=== PATIENT | male | born 1990 | race Two or more races ===

== ENCOUNTER 2017-02-21 11:33 | Inpatient (IN) | payer OTHER ==
[~2017-02-21] VITALS: Ht 177.8 cm; Wt 88.5 kg
--- NOTE | 2017-02-21 12:31 | Emergency Room Report ---
History of Present Illness General Chief Complaint: General Complaint Source: Patient Present Illness HPI Patient is a complains of redness and swelling in the left axilla Denies any fevers However he has some mild chills There was increased discomfort yesterday he feels that that has improved mildly Denies any discharge Denies any chest or shortness of breath Patient had similar pathology in the right axilla which at that time require surgery Presents for further evaluation Allergies: Coded Allergies: No Known Allergies (Unverified , 02/21/17) Patient History Past Medical History: see triage record Pertinent Family History: none Reviewed Nursing Documentation: PMH: Agreed, PSxH: Agreed Nursing Documentation-PMH Past Medical History: No History, Except For Review of Systems All Other Systems: negative except mentioned in HPI Physical Exam Vital Signs Date Time Temp Pulse Resp B/P (MAP) Pulse Ox O2 Delivery O2 Flow Rate FiO2 02/21/17 11:43 98.1 93 18 134/86 96 Room Air Sp02 EP Interpretation: reviewed, normal General Appearance: well appearing, no apparent distress Head: normocephalic, atraumatic Eyes: bilateral eye PERRL, bilateral eye EOMI ENT: hearing grossly normal, normal pharynx, TMs + canals normal, uvula midline Neck: full range of motion, supple, no meningismus, no bony tend Respiratory: lungs clear, normal breath sounds, no rhonchi, no respiratory distress, no retraction, no accessory muscle use Cardiovascular #1: normal peripheral pulses, regular rate, rhythm, no edema, no gallop, no JVD, no murmur Gastrointestinal: normal bowel sounds, non tender, soft, no mass, no organomegaly, non-distended, no guarding, no hernia, no pulsatile mass, no rebound Genitourinary: no CVA tenderness Musculoskeletal: normal inspection Neurologic: oriented x3, responsive, basketball commentator III-XII nml as tested, motor strength/ tone normal, sensory intact Psychiatric: mood/affect normal Skin: other - Erythema and fluctuance in the left axilla, there appears to be several sinus areas that appear to be fluctuant, no obvious lymph node pathology Lymphatic: normal inspection, no adenopathy Medical Decision Making Diagnostic Impression: Primary Impression: Axillary abscess Additional Impression: Cellulitis ER Course Given the patient's presentation history and findings as concern for cellulitis/ abscess formation Has several areas of what appear to be tracking sinus regions raising concern for a deeper abscess Patient has baseline blood work initiated Outpatient antibiotics provided At this time will require further inpatient intervention Labs Test 02/21/17 12:59 02/21/17 13:31 White Blood Count 11.2 K/UL (4.8-10.8) Red Blood Count 5.03 M/UL (4.70-6.10) Hemoglobin 15.4 G/DL (14.2-18.0) Hematocrit 46.6 % (42.0-52.0) Mean Corpuscular Volume 93 FL (80-99) Mean Corpuscular Hemoglobin 30.7 PG (27.0-31.0) Mean Corpuscular Hemoglobin Concent 33.1 G/DL (32.0-36.0) Red Cell Distribution Width 10.9 % (11.6-14.8) Platelet Count 317 K/UL (150-450) Mean Platelet Volume 6.0 FL (6.5-10.1) Neutrophils (%) (Auto) 66.7 % (45.0-75.0) Lymphocytes (%) (Auto) 25.6 % (20.0-45.0) Monocytes (%) (Auto) 5.6 % (1.0-10.0) Eosinophils (%) (Auto) 1.2 % (0.0-3.0) Basophils (%) (Auto) 0.9 % (0.0-2.0) Prothrombin Time 10.7 SEC (9.30-11.50) Prothromb Time International Ratio 1.0 (0.9-1.1) Activated Partial Thromboplast Time 30 SEC (23-33) Troponin I < 0.30 ng/mL (<=0.30) Rhythm Strip Diag. Results EP Interpretation: yes Rate: 88 Rhythm: NSR, no PVC's, no ectopy Chest X-Ray Diagnostic Results Chest X-Ray Diagnostic Results : Chest X-Ray Ordered: Yes # of Views/Limited/Complete: 1 View Indication: Chest Pain EP Interpretation: Yes Interpretation: no consolidation, no effusion, no pneumothorax Impression: No acute disease Electronically Signed by: Negrito German DO Last Vital Signs Date Time Temp Pulse Resp B/P (MAP) Pulse Ox O2 Delivery O2 Flow Rate FiO2 02/21/17 11:43 98.1 93 18 134/86 96 Room Air Status: improved Disposition: ADMITTED INPATIENT Condition: Serious NEGRITO GERMAN D.O. Feb 21, 2017 12:31
[2017-02-21] MEDS ORDERED: NKM (12:41)
[2017-02-21 13:01] VITALS: BP 123/76
[2017-02-21 13:19] LABS: BASOPHILS % (AUTO) 0.9 % (0.0-2.0); EOSINOPHILS % (AUTO) 1.2 % (0.0-3.0); LYMPHOCYTES % (AUTO) 25.6 % (20.0-45.0); MEAN CORPUSCULAR HEMOGLOBIN 30.7 PG (27.0-31.0); MEAN CORPUSCULAR HGB CONC 33.1 G/DL (32.0-36.0); MEAN CORPUSCULAR VOLUME 93 FL (80-99); MONOCYTES % (AUTO) 5.6 % (1.0-10.0); NEUTROPHILS % (AUTO) 66.7 % (45.0-75.0); PLATELET COUNT 317 K/UL (150-450); RED BLOOD COUNT 5.03 M/UL (4.70-6.10); RED CELL DISTRIBUTION WIDTH 10.9 % (11.6-14.8); WHITE BLOOD COUNT 11.2 K/UL (4.8-10.8)
[2017-02-21 13:21] LABS: PROTHROMBIN TIME 10.7 SEC (9.30-11.50)
--- NOTE | 2017-02-21 13:31 | Diagnostic Imaging Report ---
Indication: Chest pain Technique: One view of the chest Comparison: none Findings: Lungs and pleural spaces are clear. Heart size is normal Impression: No acute process
[2017-02-21 13:55] LABS: TROPONIN I < 0.30 ng/mL (<=0.30)
[2017-02-21 14:00] LABS: ALANINE AMINOTRANSFERASE 18 U/L (3-41); ALBUMIN/GLOBULIN RATIO 1.6 (1.0-2.7); ANION GAP 14 (5-15); ASPARTATE AMINO TRANSFERASE 13 U/L (5-40); CALCIUM 8.9 mg/dL (8.6-10.2); CARBON DIOXIDE 24 mEQ/L (20-30); CHLORIDE 104 mEQ/L (98-107); CREATININE 0.8 mg/dL (0.7-1.2); GLOMERULAR FILTRATION RATE > 60 mL/min (>60); HEMOLYSIS 1; SODIUM 142 mEQ/L (135-145); TOTAL PROTEIN 6.9 g/dL (6.6-8.7)
[2017-02-21 14:10] LABS: CKMB 1.5 ng/mL (< 6.7)
[2017-02-21 14:20] VITALS: BP 123/76
[2017-02-21] MEDS ORDERED: Morphine Sulfate 4mg/ml Inj IVP PRN (14:30)
[2017-02-21] MEDS ORDERED: Morphine Sulfate 2mg/ml Inj IVP PRN (14:30)
[2017-02-21] MEDS ORDERED: Mylanta II UD 30ml ORAL PRN (14:30)
[2017-02-21 15:54] VITALS: BP 120/86
[2017-02-21] MEDS: D5 1/2NS 1,000 ML IV SCH (16:41)
[2017-02-21 20:00] VITALS: BP 134/87
--- NOTE | 2017-02-21 20:56 | History and Physical ---
History of Present Illness General Date patient seen: Feb 21, 2017 Time patient seen: 14:00 Reason for Hospitalization: L axilla lesion Present Illness HPI 26yo male with pmh of hiradenitis suppurative who presents with L axilla lesion. Pt noted lesions started abt 1 week ago described as raised lesions with swelling/redness/drainage. Lesions are worsening. He had similar lesions on R axilla abt 1 year ago and underwent surgery w/ good response. Denies f/c, n /v, d/c, chest pain, SOB. Pt smokes abt 1ppd every 2-2.5 days. He is active and denies chest pain and SOB while active. Allergies: Coded Allergies: No Known Allergies (Unverified , 02/21/17) Medication History Scheduled No Known Medications* (NKM - No Known Medications*), 0 ., (Reported) Patient History History Provided By: Patient, Medical Record, PMD Healthcare decision maker Resuscitation status Full Code Advanced Directive on File Past Medical/Surgical History Past Medical/Surgical History: (1) Hidradenitis suppurativa Family History Family History: Cardiac disorder in grandfather FH: HTN (hypertension) Social History Social History: (1) Tobacco abuse Review of Systems ROS Narrative CONSTITUTIONAL: No weight loss, fever, chills, weakness or fatigue. HEENT: Eyes: No visual loss, blurred vision, double vision or yellow sclerae. Ears, Nose, Throat: No hearing loss, sneezing, congestion, runny nose or sore throat. SKIN: +L axillay lesion CARDIOVASCULAR: No chest pain, chest pressure or chest discomfort. No palpitations or edema. RESPIRATORY: No shortness of breath, cough or sputum. GASTROINTESTINAL: No anorexia, nausea, vomiting or diarrhea. No abdominal pain or blood. NEUROLOGICAL: No headache, dizziness, syncope, paralysis, ataxia, numbness or tingling in the extremities. No change in bowel or bladder control. MUSCULOSKELETAL: No muscle, back pain, joint pain or stiffness. HEMATOLOGIC: No anemia, bleeding or bruising. LYMPHATICS: No enlarged nodes. No history of splenectomy. PSYCHIATRIC: No history of depression or anxiety. ENDOCRINOLOGIC: No reports of sweating, cold or heat intolerance. No polyuria or polydipsia. ALLERGIES: No history of asthma, hives, eczema or rhinitis. Physical Exam Physical Exam Narrative General: alert, cooperative, no distress, appears stated age Head: normocephalic, without obvious abnormality, atraumatic Eyes: conjunctivae/corneas clear. PERRL, EOM's intact Throat: lips, mucosa, and tongue normal. MMM Neck: supple, symmetrical, trachea midline, and no JVD Lungs: clear to auscultation bilaterally Heart: regular rate and rhythm, S1, S2 normal, no murmur, click, rub or gallop Abdomen: soft, non-tender, non-distended, bowel sounds normal; no masses or organomegaly Extremities: extremities normal, atraumatic, no cyanosis or edema Pulses: 2+ and symmetric Skin: Erythema and fluctuance in the left axilla, there appears to be several sinus areas that appear to be fluctuant Neurologic: grossly normal, no focal deficits Last 24 Hour Vital Signs Date Time Temp Pulse Resp B/P (MAP) Pulse Ox O2 Delivery O2 Flow Rate FiO2 02/21/17 15:54 97.9 79 20 120/86 96 Room Air 02/21/17 14:20 97.7 70 12 123/76 98 Room Air 02/21/17 14:20 70 12 123/76 98 Room Air 02/21/17 13:01 97.7 75 15 123/76 99 Room Air 02/21/17 11:43 98.1 93 18 134/86 96 Room Air Intake and Output 02/21/17 02/22/17 19:00 07:00 Intake Total 150 ml 340 ml Balance 150 ml 340 ml Intake Oral 340 ml IV Total 150 ml # Voids 1 2 # Bowel Movements 1 Laboratory Tests Test 02/21/17 12:59 02/21/17 13:31 White Blood Count 11.2 K/UL (4.8-10.8) H Red Blood Count 5.03 M/UL (4.70-6.10) Hemoglobin 15.4 G/DL (14.2-18.0) Hematocrit 46.6 % (42.0-52.0) Mean Corpuscular Volume 93 FL (80-99) Mean Corpuscular Hemoglobin 30.7 PG (27.0-31.0) Mean Corpuscular Hemoglobin Concent 33.1 G/DL (32.0-36.0) Red Cell Distribution Width 10.9 % (11.6-14.8) L Platelet Count 317 K/UL (150-450) Mean Platelet Volume 6.0 FL (6.5-10.1) L Neutrophils (%) (Auto) 66.7 % (45.0-75.0) Lymphocytes (%) (Auto) 25.6 % (20.0-45.0) Monocytes (%) (Auto) 5.6 % (1.0-10.0) Eosinophils (%) (Auto) 1.2 % (0.0-3.0) Basophils (%) (Auto) 0.9 % (0.0-2.0) Prothrombin Time 10.7 SEC (9.30-11.50) Prothromb Time International Ratio 1.0 (0.9-1.1) Activated Partial Thromboplast Time 30 SEC (23-33) Sodium Level 142 mEQ/L (135-145) Potassium Level 4.0 mEQ/L (3.4-4.9) Chloride Level 104 mEQ/L (98-107) Carbon Dioxide Level 24 mEQ/L (20-30) Anion Gap 14 (5-15) Blood Urea Nitrogen 10 mg/dL (7-23) Creatinine 0.8 mg/dL (0.7-1.2) Estimat Glomerular Filtration Rate > 60 mL/min (>60) Glucose Level 83 mg/dL (74-106) Calcium Level 8.9 mg/dL (8.6-10.2) Total Bilirubin 0.3 mg/dL (0.0-1.2) Aspartate Amino Transf (AST/SGOT) 13 U/L (5-40) Alanine Aminotransferase (ALT/SGPT) 18 U/L (3-41) Alkaline Phosphatase 65 U/L (40-129) Total Creatine Kinase 76 U/L (38-174) Creatine Kinase MB 1.5 ng/mL (< 6.7) Creatine Kinase MB Relative Index 1.9 Troponin I < 0.30 ng/mL (<=0.30) Total Protein 6.9 g/dL (6.6-8.7) Albumin 4.3 g/dL (3.5-5.2) Globulin 2.6 g/dL Albumin/Globulin Ratio 1.6 (1.0-2.7) Height (Feet): 5 Height (Inches): 10.00 Weight (Pounds): 195 Medications Current Medications Medications (Trade) Dose Ordered Sig/Rosangela Route PRN Reason Start Time Stop Time Status Last Admin Dose Admin Acetaminophen (Tylenol) 650 mg Q4H PRN ORAL Mild Pain (Pain Scale 1-3) 02/21/17 14:30 03/23/17 14:29 Al Hydroxide/Mg Hydroxide (Mylanta II) 30 ml Q6H PRN ORAL dyspepsia 02/21/17 14:30 03/23/17 14:29 Bisacodyl (Dulcolax) 10 mg HSPRN PRN RECTAL Constipation 02/21/17 21:00 03/23/17 20:59 Dextrose (Dextrose 50%) STAT PRN IV Hypoglycemia 02/21/17 14:30 03/23/17 14:29 Dextrose/Sodium Chloride 1,000 ml @ 75 mls/hr [id number] IV 02/21/17 14:30 03/23/17 14:29 02/21/17 16:41 Diphenhydramine HCl (Benadryl) 25 mg Q6H PRN ORAL Itching/Pruritis 02/21/17 14:30 03/23/17 14:29 Docusate Sodium (Colace) 100 mg EVERY 12 HOURS ORAL 02/21/17 21:00 03/23/17 20:59 Magnesium Hydroxide (Mom) 30 ml HSPRN PRN ORAL Constipation 02/21/17 21:00 03/23/17 20:59 Morphine Sulfate (Morphine Sulfate) 2 mg Q3H PRN IVP Moderate Pain (Pain Scale 4-6) 02/21/17 14:30 02/28/17 14:29 Morphine Sulfate (Morphine Sulfate) 4 mg Q3H PRN IVP Severe Pain (Pain Scale 7-10) 02/21/17 14:30 02/28/17 14:29 Ondansetron HCl (Zofran) 4 mg Q6H PRN IVP Nausea & Vomiting 02/21/17 14:30 03/23/17 14:29 Polyethylene Glycol (Miralax) 17 gm HSPRN PRN ORAL Constipation 02/21/17 21:00 03/23/17 20:59 Zolpidem Tartrate (Ambien) 5 mg HSPRN PRN ORAL Insomnia 02/21/17 21:00 02/28/17 20:59 Assessment/Plan Problem List: (1) Axillary abscess ICD Codes: L02.419 - Cutaneous abscess of limb, unspecified SNOMED: 84397883 (2) Cellulitis ICD Codes: L03.90 - Cellulitis, unspecified SNOMED: 713329127 (3) Hidradenitis suppurativa ICD Codes: L73.2 - Hidradenitis suppurativa SNOMED: 50589212 (4) Tobacco abuse ICD Codes: Z72.0 - Tobacco use SNOMED: 82440265, [id number] Status: stable Assessment/Plan Admit in Plastic surgery consulted Check blood culture x 2 Empiric ancef Pain control, supportive care, bowel regimen If patient is required to have surgery, based on the patient's medical history, and other available ancillary data, the patient is a LOW risk for an INTERMEDIATE risk procedure. Per the most recent ACC/AHA guidelines, the patient does not need any further cardiopulmonary testing prior to the procedure and there do not appear to be any clear medical contraindications to proceeding with the proposed procedure. Discussed with patient/family, RN, surgery regarding mgmt and dispo Sharon Lenz M.D. Feb 21, 2017 20:56
[2017-02-21] MEDS ORDERED: Miralax 17gm pkt ORAL PRN (21:00)
[2017-02-21] MEDS ORDERED: Zolpidem 5mg tab ORAL PRN (21:00)
[2017-02-21] MEDS ORDERED: Milk of Magnesia 30ml Ud ORAL PRN (21:00)
[2017-02-21] MEDS: Docusate 100mg cap ORAL SCH (21:13)
[2017-02-22] VITALS (16 sets, daily range): BP systolic 101–128; BP diastolic 40–72
[2017-02-22] MEDS: D5 1/2NS 1,000 ML IV SCH ×2 (03:50→17:39)
[2017-02-22] MEDS ORDERED: Lidocaine 1% 10mg/ml/Epi 0.005mg/ml 30ml vial INJ ONE (07:16)
[2017-02-22] MEDS ORDERED: Surgicel 4in x 8in TOPIC ONE (07:16)
[2017-02-22] MEDS ORDERED: Bacitracin 50000 Units Vial ONE (07:17)
[2017-02-22] MEDS ORDERED: NeoSporin Gu Irrig 1ml Amp IRRIG ONE (07:17)
[2017-02-22] MEDS ORDERED: Propofol 200mg/20ml IV ONE ×2 (07:58→08:45)
--- NOTE | 2017-02-22 08:20 | Pre-Procedure Note/Attestation ---
Pre-Procedure Note/Attestation Complete Prior to Procedure Planned Procedure: left Procedure Narrative: Left axillary debridement and flap elevation and possible wound vac placement Attestation I attest that I discussed the nature of the procedure; its benefits; risks and complications; and alternatives (and the risks and benefits of such alternatives ), prior to the procedure, with the patient (or the patient's legal cash posting representative). I attest that, if there was a reasonable possibility of needing a blood transfusion, the patient (or the patient's legal cash posting representative) was given the [facility] standardized written summary, pursuant to the Juan Francisco Lipscomb Blood Safety Act ([place] Health and Safety Code # 1645, as amended). I attest that I re-evaluated the patient just prior to the surgery and that there has been no change in the patient's H&P, except as documented below: JAYLEEN CHEATHAM Feb 22, 2017 08:20
[2017-02-22] MEDS ORDERED: Rate Change PCA 1 Each MISC PRN (08:30)
[2017-02-22] MEDS ORDERED: Glycopyrrolate 0.2mg/ml 1ml Vial ONE (08:45)
[2017-02-22] MEDS ORDERED: Ketorolac 30mg Inj ONE (08:45)
[2017-02-22] MEDS ORDERED: Midazolam 2mg/2ml Inj ONE (08:45)
[2017-02-22] MEDS ORDERED: fentaNYL 100 mcg/2 mL IV ONE (08:45)
[2017-02-22] MEDS ORDERED: Sterile Water Irrig 1000ml IRRIG ONE (08:45)
[2017-02-22] MEDS ORDERED: LR 1000ml ONE (08:45)
[2017-02-22] MEDS ORDERED: Succinylcholine 20mg/ml 10ml vial ONE (08:45)
[2017-02-22] MEDS ORDERED: Zemuron 50mg/5ml Inj IV ONE (08:45)
[2017-02-22] MEDS ORDERED: Neostigmine 1mg/ml 10ml Inj ONE (08:45)
[2017-02-22] MEDS ORDERED: NS Irrig 1000ml ONE (08:45)
[2017-02-22] MEDS: Docusate 100mg cap ORAL SCH ×2 (09:00→21:08)
[2017-02-22] MEDS: ceFAZolin sod 1 GM in D5W 55 ML IVP SCH ×3 (09:00→21:08)
[2017-02-22] MEDS ORDERED: LR 1000ml 1,000 ML IVLG SCH (09:34)
--- NOTE | 2017-02-22 09:34 | Anethesia Preoperative Eval ---
Anesthesia Pre-op PMH/ROS General Date of Evaluation: Feb 22, 2017 Time of Evaluation: 08:40 Anesthesiologist: Cyn ASA Score: ASA 2 Mallampati Score Class I : Soft palate, uvula, fauces, pillars visible Class II: Soft palate, uvula, fauces visible Class III: Soft palate, base of uvula visible Class IV: Only hard plate visible Mallampati Classification: Class II Surgeon: Deon Diagnosis: L axillary hydradenitis Surgical Procedure: xcision of L axillary HS Anesthesia History: none Social History: current smoker Family History: no anesthesia problems Allergies: Coded Allergies: No Known Allergies (Unverified , 02/21/17) Medications: see eMAR Past Medical History Cardiovascular: Denies: HTN, CAD, OR, valve dz, arrhythmia, other Pulmonary: Denies: asthma, COPD, WILFRID, other Gastrointestinal/Genitourinary: Reports: GERD - mild, Denies: CRI, ESRD, other Neurologic/Psychiatric: Denies: dementia, CVA, depression/anxiety, TIA, other Endocrine: Denies: DM, hypothyroidism, steroids, other HEENT: Denies: cataract (L), cataract (R), glaucoma, ANGOON (L), ANGOON (R), other Hematology/Immune: Denies: anemia, DVT, bleeding disorder, other Musculoskeletal/Integumentary: Reports: other - recurrent HS, Denies: OA, RA, DJD, DDD, edema PMH Narrative: as above PSxH Narrative: Surgical treatment of HS Anesthesia Pre-op Phys. Exam Physician Exam Last Vital Signs Date Time Temp Pulse Resp B/P (MAP) Pulse Ox O2 Delivery O2 Flow Rate FiO2 02/22/17 08:00 98.2 73 19 126/64 99 Room Air Constitutional: NAD Neurologic: CN 2-12 intact Cardiovascular: RRR, no M/R/G Respiratory: CTA Gastrointestinal: S/NT/ND Airway Exam Mallampati Score: Class II MO: full Neck: flexible ROM: full Teeth: intact Dentures: no upper, no lower Anesthesia Pre-op A/P Labs Hematology Test 02/21/17 12:59 White Blood Count 11.2 K/UL (4.8-10.8) H Red Blood Count 5.03 M/UL (4.70-6.10) Hemoglobin 15.4 G/DL (14.2-18.0) Hematocrit 46.6 % (42.0-52.0) Mean Corpuscular Volume 93 FL (80-99) Mean Corpuscular Hemoglobin 30.7 PG (27.0-31.0) Mean Corpuscular Hemoglobin Concent 33.1 G/DL (32.0-36.0) Red Cell Distribution Width 10.9 % (11.6-14.8) L Platelet Count 317 K/UL (150-450) Mean Platelet Volume 6.0 FL (6.5-10.1) L Neutrophils (%) (Auto) 66.7 % (45.0-75.0) Lymphocytes (%) (Auto) 25.6 % (20.0-45.0) Monocytes (%) (Auto) 5.6 % (1.0-10.0) Eosinophils (%) (Auto) 1.2 % (0.0-3.0) Basophils (%) (Auto) 0.9 % (0.0-2.0) Coagulation Test 02/21/17 12:59 Prothrombin Time 10.7 SEC (9.30-11.50) Prothromb Time International Ratio 1.0 (0.9-1.1) Activated Partial Thromboplast Time 30 SEC (23-33) Chemistry Test 02/21/17 13:31 Sodium Level 142 mEQ/L (135-145) Potassium Level 4.0 mEQ/L (3.4-4.9) Chloride Level 104 mEQ/L (98-107) Carbon Dioxide Level 24 mEQ/L (20-30) Anion Gap 14 (5-15) Blood Urea Nitrogen 10 mg/dL (7-23) Creatinine 0.8 mg/dL (0.7-1.2) Estimat Glomerular Filtration Rate > 60 mL/min (>60) Glucose Level 83 mg/dL (74-106) Calcium Level 8.9 mg/dL (8.6-10.2) Total Bilirubin 0.3 mg/dL (0.0-1.2) Aspartate Amino Transf (AST/SGOT) 13 U/L (5-40) Alanine Aminotransferase (ALT/SGPT) 18 U/L (3-41) Alkaline Phosphatase 65 U/L (40-129) Total Creatine Kinase 76 U/L (38-174) Creatine Kinase MB 1.5 ng/mL (< 6.7) Creatine Kinase MB Relative Index 1.9 Troponin I < 0.30 ng/mL (<=0.30) Total Protein 6.9 g/dL (6.6-8.7) Albumin 4.3 g/dL (3.5-5.2) Globulin 2.6 g/dL Albumin/Globulin Ratio 1.6 (1.0-2.7) Risk Assessment & Plan Assessment: ASA 2 Plan: GA with ETT Status Change Before Surgery: No Pre-Antibiotics Drug: Ancef 2 gr. Given Within 1 Hr of Incision: Yes Time Given: 09:02 ANEL BENNETT M.D. Feb 22, 2017 09:34
--- NOTE | 2017-02-22 09:41 | Operative Note - PDOC ---
Operative Note Operative Note Pre-op Diagnosis: Left axillary infection Procedure: Radical excision of left axillary tissue with flap elevation Surgeon: Deon Automatic Winder Operator: Mandy Anesthesia: general Specimen: yes Complications: none Estimated Blood Loss: minimal Drains: wound vac Implant(s) used?: No JAYLEEN CHEATHAM Feb 22, 2017 09:41
[2017-02-22] MEDS ORDERED: Meperidine 25mg/0.5ml Inj (FOR RIGORS ONLY) IV PRN (09:45)
[2017-02-22] MEDS ORDERED: DiphenhydrAMINE 50mg/ml Inj IVP PRN (09:45)
[2017-02-22] MEDS ORDERED: Hydromorphone 0.5mg/0.5ml inj IVP PRN (09:45)
[2017-02-22] MEDS ORDERED: Ketorolac 30mg Inj IV PRN (09:45)
[2017-02-22] MEDS ORDERED: Metoclopramide 10mg/2ml Inj IVP PRN (09:45)
[2017-02-22] MEDS ORDERED: Midazolam 2mg/2ml Inj IVP PRN (09:45)
[2017-02-22] MEDS ORDERED: PCA HYDROmorphone 1mg/ml 30 ML IV PRN (10:00)
[2017-02-22] MEDS ORDERED: Zolpidem 5mg tab ORAL PRN (10:00)
--- NOTE | 2017-02-22 10:09 | Immediate Post-Op Evaluation ---
Immediate Post-Op Evalulation Immediate Post-Op Evalulation Procedure: Excision of L axillary HS Date of Evaluation: Feb 22, 2017 Time of Evaluation: 10:08 IV Fluids: 800 Blood Products: none Estimated Blood Loss: <50 Urinary Output: none Blood Pressure Systolic: 128 Blood Pressure Diastolic: 56 Pulse Rate: 98 Respiratory Rate: 22 O2 Sat by Pulse Oximetry: 98 Temperature (Fahrenheit): 97.6 Pain Score (1-10): 2 Nausea: No Vomiting: No Complications none Patient Status: awake, patent, extubated, none Hydration Status: adequate ANEL BENNETT M.D. Feb 22, 2017 10:09
[2017-02-22] MEDS: PCA HYDROmorphone 1mg/ml 30 ML IV PRN (11:09)
[2017-02-22] MEDS ORDERED: PCA Education Pamphlet MISC ONE (12:00)
--- NOTE | 2017-02-22 15:15 | General Progress Note ---
Assessment/Plan Problem List: (1) Axillary abscess ICD Codes: L02.419 - Cutaneous abscess of limb, unspecified SNOMED: 00746415 (2) Cellulitis ICD Codes: L03.90 - Cellulitis, unspecified SNOMED: 716760168 (3) Hidradenitis suppurativa ICD Codes: L73.2 - Hidradenitis suppurativa SNOMED: 69969341 (4) Tobacco abuse ICD Codes: Z72.0 - Tobacco use SNOMED: 98295941, 734006874 Status: stable Assessment/Plan Appreciate surgery rec's s/p radical excision of left axillary tissue with flap elevation on 02/22/17 Empiric IV ancef F/u cultures Encourage mobilization/ambulation Encourage incentive spirometry to optimize pulmonary hygiene DVT/GI prophylaxis as appropriate Pain control, supportive care, bowel regimen Counseled on tobacco cessation FULL CODE A total of 32min of extra time was spent in addition to normal encounter time for care/coordination and counseling. D/w pt, RN, surgery regarding mgmt and dispo. D/w Dr. Chavarria re postop rec's Subjective Date patient seen: Feb 22, 2017 Time patient seen: 15:15 ROS Limited/Unobtainable: No Constitutional: Reports: no symptoms HEENT: Reports: no symptoms Cardiovascular: Reports: no symptoms Respiratory: Reports: no symptoms Gastrointestinal/Abdominal: Reports: no symptoms Genitourinary: Reports: no symptoms Neurologic/Psychiatric: Reports: no symptoms Endocrine: Reports: no symptoms Hematologic/Lymphatic: Reports: no symptoms Allergies: Coded Allergies: No Known Allergies (Unverified , 02/21/17) All Systems: reviewed and negative except above Subjective No acute o/n events s/p radical excision of left axillary tissue with flap elevation today Pt doing well. Pain controlled. Denies f/c, n/v, d/c, chest pain, SOB Objective Last 24 Hour Vital Signs Date Time Temp Pulse Resp B/P (MAP) Pulse Ox O2 Delivery O2 Flow Rate FiO2 02/22/17 12:47 18 02/22/17 12:39 97.6 54 18 111/49 99 Nasal Cannula 02/22/17 12:17 17 02/22/17 12:08 96.9 51 18 102/40 97 Nasal Cannula 02/22/17 12:02 18 02/22/17 11:49 96.8 54 18 101/40 98 Nasal Cannula 02/22/17 11:47 17 02/22/17 11:41 97.0 02/22/17 11:30 13 02/22/17 11:15 97.2 56 17 122/57 100 Room Air 3.0 02/22/17 11:15 15 02/22/17 11:09 14 02/22/17 11:00 53 15 128/60 100 Room Air 3.0 02/22/17 10:45 58 14 119/70 100 Simple Mask 6.0 02/22/17 10:30 69 13 127/70 100 Simple Mask 6.0 02/22/17 10:15 82 14 127/70 100 Simple Mask 6.0 02/22/17 10:09 98 22 98 02/22/17 10:05 79 15 117/64 100 Simple Mask 6.0 02/22/17 10:00 97 16 115/63 100 Simple Mask 6.0 02/22/17 09:54 97.4 108 14 123/47 97 Simple Mask 6.0 02/22/17 08:00 98.2 73 19 126/64 99 Room Air 02/22/17 04:00 98.0 72 18 122/64 98 Room Air 02/22/17 00:00 97.5 79 18 120/66 98 Room Air 02/21/17 20:00 98.4 82 18 134/87 97 Room Air 02/21/17 15:54 97.9 79 20 120/86 96 Room Air Intake and Output 02/22/17 02/23/17 19:00 07:00 Intake Total 1150 ml Output Total 50 ml Balance 1100 ml IV Total 1150 ml Output Estimated Blood Loss 50 ml # Bowel Movements 1 Height (Feet): 5 Height (Inches): 10.00 Weight (Pounds): 195 Objective General: alert, cooperative, no distress, appears stated age Head: normocephalic, without obvious abnormality, atraumatic Eyes: conjunctivae/corneas clear. PERRL, EOM's intact Throat: lips, mucosa, and tongue normal. MMM Neck: supple, symmetrical, trachea midline, and no JVD Lungs: clear to auscultation bilaterally Heart: regular rate and rhythm, S1, S2 normal, no murmur, click, rub or gallop Abdomen: soft, non-tender, non-distended, bowel sounds normal; no masses or organomegaly Extremities: extremities normal, atraumatic, no cyanosis or edema Pulses: 2+ and symmetric Skin: skin color, texture, turgor normal; no rashes or lesions Dressing c/d/i Neurologic: grossly normal, no focal deficits Sharon Lenz M.D. Feb 22, 2017 15:15
[2017-02-22] MEDS ORDERED: D5 1/2NS 1000ml IV ONE (16:06)
[2017-02-22] MEDS: PCA shift volume MISC SCH (19:00)
[2017-02-22] MEDS: Heparin 5000 units/ml inj SUBQ SCH (21:00)
--- NOTE | 2017-02-22 22:15 | Consultation ---
DATE OF CONSULTATION: 02/22/2017 History Of Present Illness: This is a 26-year-old [place] male admitted through the emergency room for pain and infection in his left axilla. He presented with significant induration and tenderness in the area and was admitted by the medical team and was started on IV antibiotics. PAST MEDICAL HISTORY: Significant for hidradenitis. Past Surgical History: Significant for right axillary reconstruction with skin grafting. MEDICATIONS: None. ALLERGIES: None. PHYSICAL EXAMINATION: GENERAL: The patient is alert and oriented x3. HEART: Regular rate and rhythm. ABDOMEN: Soft, nontender, and nondistended. Extremities: Examination of the extremities and the trunk reveals an area of induration and infected tissue under the left axilla. LABORATORY DATA: White blood cell count is elevated at 11.2. Assessment And Plan: This is a 26-year-old male with infected left axillary tissue secondary to hidradenitis suppurativa. He will require a staged treatment of radical excision of the area with flap elevation followed by staged closure with flap advancement and closure of the wound. He understands this plan and agrees to proceed. Angelo Chavarria M.D. DR: MAGALI JOB#: [id number] CC:
--- NOTE | 2017-02-22 22:15 | Operative Note - Dictated ---
DATE OF OPERATION: 02/22/2017 NOTE: INCOMPLETE DICTATION SURGEON: Angelo Chavarria M.D. PREOPERATIVE DIAGNOSIS: Infected left axillary tissue. POSTOPERATIVE DIAGNOSIS: Infected left axillary tissue. PROCEDURES: Radical excision of Angelo Chavarria M.D. DR: LEATHA JOB#: [id number] CC:
[2017-02-23] VITALS: BP 115/70
--- NOTE | 2017-02-23 02:15 | Operative Note - Dictated ---
DATE OF OPERATION: 02/22/2017 PREOPERATIVE DIAGNOSIS: Infected left axillary tissue. POSTOPERATIVE DIAGNOSIS: Infected left axillary tissue. PROCEDURES: 1. Radical excision of left axillary tissue. 2. Elevation of the thoracodorsal artery flap for staged closure of left axillary wound. 3. Elevation of anterior lateral chest wall flap for staged closure of left axillary wound. SURGEON: Angelo Chavarria M.D. FURNACE REPAIRER: Juancarlos Galvan M.D. ANESTHESIA: General. COMPLICATIONS: None. DRAINS: Included a wound VAC. DISPOSITION: Stable to the recovery room. Indications For Surgery: This is a 26-year-old male, admitted with elevated white count and infection and drainage in the left axilla. He was noted to have evidence of an infected mass there secondary to hidradenitis. I felt that he was an appropriate candidate for staged treatment with a radical excision and reconstruction. He understood the risks and benefits of surgery and agreed to proceed. Details Of The Operation: The patient was brought to the operating room and laid in the supine position on the operating room table. His left axilla and chest were prepped and draped in a sterile and usual fashion. A marking pen was used to delineate the extent of the infection on the axilla and this measured approximately 3 x 8 cm. A #10 blade was used to make the incision to radically excise the specimen and followed with electrocautery all the way down to the level of the axillary fascia. The specimen was freed from the axillary fascia and completely excised from the wound bed. Following the radical excision, the wound was measured once again and a corresponding thoracodorsal artery flap was designed along the lateral chest wall and once this was done, a #10 blade was then used to make the skin incision all the way down to the level of the latissimus muscle and the flap was fully mobilized with a pedicle flap based off of perforators of the thoracodorsal artery. Once this was done, we also noted that we needed to advance an additional flap to allow for complete closure of the wound, as such an anterior lateral chest wall flap based off of perforators of the intercostal arteries was elevated just above the latissimus as well as pectoralis muscle fascia. The flap was fully mobilized with the combination of these two flaps. When we tentatively closed the wound, we noted that there was a tension-free closure with the flaps being inset. However, given the amount of infection present, we felt that it was not appropriate to perform definitive closure and flap inset at this time. As such, the wound was copiously irrigated with pulse lavage. The thoracodorsal artery flap was then placed back in situ in port lions position following hemostasis and the wound that remained in the axilla was covered with a wound VAC, sponge, and the plan will be to bring the patient back in 72 hours for removal of the wound VAC with flap advancement and definitive closure of the wounds. The patient tolerated the procedure well. There were no complications. Angelo Chavarria M.D. DR: MAGALI JOB#: [id number] CC:
[2017-02-23 04:00] VITALS: BP 122/62
[2017-02-23] MEDS: D5 1/2NS 1,000 ML IV SCH ×2 (06:24→20:54)
[2017-02-23] MEDS: ceFAZolin sod 1 GM in D5W 55 ML IVP SCH ×3 (06:24→21:13)
[2017-02-23] MEDS: PCA shift volume MISC SCH ×2 (07:26→19:19)
[2017-02-23 08:00] VITALS: BP 117/69
--- NOTE | 2017-02-23 09:03 | General Progress Note ---
Progress Note Progress Note Pt seen and examined. POD# 1 and doing well. Wound vac fxing fine. Pain well controlled. To OR on Saturday for definitive wound closure. JALYEEN Fink MD Feb 23, 2017 09:03
[2017-02-23] MEDS: Docusate 100mg cap ORAL SCH ×2 (09:17→20:54)
[2017-02-23] MEDS: Heparin 5000 units/ml inj SUBQ SCH ×2 (09:19→21:02)
--- NOTE | 2017-02-23 10:55 | 48 Hour Post Anesthesia Eval ---
Post Anesthesia Evaluation Procedure: Excision of L axillary HS Date of Evaluation: Feb 23, 2017 Time of Evaluation: 10:54 Blood Pressure Systolic: 117 0: 54 Pulse Rate: 74 Respiratory Rate: 14 O2 Sat by Pulse Oximetry: 100 Airway: patent Nausea: No Vomiting: No Hydration Status: adequate Mental Status/LOC: patient returned to baseline Follow-up Care/Observations: per surgery Post-Anesthesia Complications: none Follow-up care needed: N/A MARY MOLINA CRNA Feb 23, 2017 10:55
[2017-02-23] MEDS: PCA HYDROmorphone 1mg/ml 30 ML IV PRN (11:13)
[2017-02-23 12:00] VITALS: BP 126/70
--- NOTE | 2017-02-23 15:33 | General Progress Note ---
Assessment/Plan Problem List: (1) Axillary abscess ICD Codes: L02.419 - Cutaneous abscess of limb, unspecified SNOMED: 17076456 (2) Cellulitis ICD Codes: L03.90 - Cellulitis, unspecified SNOMED: 523419943 (3) Hidradenitis suppurativa ICD Codes: L73.2 - Hidradenitis suppurativa SNOMED: 88713774 (4) Tobacco abuse ICD Codes: Z72.0 - Tobacco use SNOMED: 84795919, [id number] Status: stable Assessment/Plan Appreciate surgery rec's s/p radical excision of left axillary tissue with flap elevation on 02/22/17 Plan for OR on Sat for closure Empiric IV ancef F/u cultures Encourage mobilization/ambulation Encourage incentive spirometry to optimize pulmonary hygiene DVT/GI prophylaxis as appropriate Pain control, supportive care, bowel regimen Counseled on tobacco cessation FULL CODE A total of 31min of extra time was spent in addition to normal encounter time for care/coordination and counseling. D/w pt, RN, surgery regarding mgmt and dispo. D/w Dr. Chavarria re postop rec's Subjective Date patient seen: Feb 23, 2017 Time patient seen: 15:33 ROS Limited/Unobtainable: No Constitutional: Reports: no symptoms HEENT: Reports: no symptoms Cardiovascular: Reports: no symptoms Respiratory: Reports: no symptoms Gastrointestinal/Abdominal: Reports: no symptoms Genitourinary: Reports: no symptoms Neurologic/Psychiatric: Reports: no symptoms Endocrine: Reports: no symptoms Hematologic/Lymphatic: Reports: no symptoms Allergies: Coded Allergies: No Known Allergies (Unverified , 02/21/17) All Systems: reviewed and negative except above Subjective No acute o/n events s/p radical excision of left axillary tissue with flap elevation POD#1 Pt doing well. Pain controlled. Denies f/c, n/v, d/c, chest pain, SOB Objective Last 24 Hour Vital Signs Date Time Temp Pulse Resp B/P (MAP) Pulse Ox O2 Delivery O2 Flow Rate FiO2 02/23/17 12:00 19 02/23/17 12:00 98.3 72 19 126/70 100 Room Air 02/23/17 10:55 74 14 100 02/23/17 08:00 20 02/23/17 08:00 98.4 74 20 117/69 99 Room Air 02/23/17 04:00 97.8 61 18 122/62 97 Room Air 02/23/17 04:00 18 02/23/17 00:00 98.1 59 18 115/70 97 Room Air 02/23/17 00:00 18 02/22/17 20:00 97.9 62 19 127/72 98 Room Air 02/22/17 17:17 18 02/22/17 16:00 19 02/22/17 16:00 97.8 59 18 126/69 100 Nasal Cannula Intake and Output 02/23/17 02/24/17 19:00 07:00 Intake Total 600 ml Balance 600 ml IV Total 600 ml Height (Feet): 5 Height (Inches): 10.00 Weight (Pounds): 195 Objective General: alert, cooperative, no distress, appears stated age Head: normocephalic, without obvious abnormality, atraumatic Eyes: conjunctivae/corneas clear. PERRL, EOM's intact Throat: lips, mucosa, and tongue normal. MMM Neck: supple, symmetrical, trachea midline, and no JVD Lungs: clear to auscultation bilaterally Heart: regular rate and rhythm, S1, S2 normal, no murmur, click, rub or gallop Abdomen: soft, non-tender, non-distended, bowel sounds normal; no masses or organomegaly Extremities: extremities normal, atraumatic, no cyanosis or edema Pulses: 2+ and symmetric Skin: skin color, texture, turgor normal; no rashes or lesions Dressing c/d/i Neurologic: grossly normal, no focal deficits Sharon Lenz M.D. Feb 23, 2017 15:33
[2017-02-23 16:00] VITALS: BP 129/83
[2017-02-23 20:00] VITALS: BP 131/78
[2017-02-24] VITALS: BP 120/60
[2017-02-24 04:00] VITALS: BP 121/65
[2017-02-24] MEDS: ceFAZolin sod 1 GM in D5W 55 ML IVP SCH ×3 (05:09→21:52)
[2017-02-24] MEDS: PCA shift volume MISC SCH ×2 (07:00→19:25)
[2017-02-24 08:00] VITALS: BP 111/61
[2017-02-24] MEDS: Docusate 100mg cap ORAL SCH ×2 (08:47→21:52)
[2017-02-24] MEDS: Heparin 5000 units/ml inj SUBQ SCH ×2 (08:50→21:53)
[2017-02-24] MEDS: D5 1/2NS 1,000 ML IV SCH ×2 (10:33→22:38)
[2017-02-24] MEDS ORDERED: Morphine Sulfate 4mg/ml Inj IVP PRN (11:05)
[2017-02-24] MEDS ORDERED: Morphine Sulfate 2mg/ml Inj IVP PRN (11:05)
[2017-02-24] MEDS ORDERED: PCA HYDROmorphone 1mg/ml 30 ML IV PRN (11:15)
[2017-02-24] MEDS ORDERED: Rate Change PCA 1 Each MISC PRN (11:15)
[2017-02-24 12:34] VITALS: BP 121/76
[2017-02-24 16:22] VITALS: BP 120/71
--- NOTE | 2017-02-24 19:10 | General Progress Note ---
Assessment/Plan Problem List: (1) Tobacco abuse ICD Codes: Z72.0 - Tobacco use SNOMED: 39860664, 685659465 (2) Hidradenitis suppurativa ICD Codes: L73.2 - Hidradenitis suppurativa SNOMED: 93033154 (3) Axillary abscess ICD Codes: L02.419 - Cutaneous abscess of limb, unspecified SNOMED: 12444296 (4) Cellulitis ICD Codes: L03.90 - Cellulitis, unspecified SNOMED: 976704835 Status: doing well Assessment/Plan Appreciate surgery rec's s/p radical excision of left axillary tissue with flap elevation on 02/22/17 Plan for OR on Sat for closure Empiric IV ancef F/u cultures Encourage mobilization/ambulation Encourage incentive spirometry to optimize pulmonary hygiene DVT/GI prophylaxis as appropriate Pain control, supportive care, bowel regimen Counseled on tobacco cessation FULL CODE Subjective Date patient seen: Feb 24, 2017 Allergies: Coded Allergies: No Known Allergies (Unverified , 02/21/17) Subjective Doing well AF, HDS pain well controlled. denies f/c, n/v, sob, cp Objective Last 24 Hour Vital Signs Date Time Temp Pulse Resp B/P (MAP) Pulse Ox O2 Delivery O2 Flow Rate FiO2 02/24/17 16:22 97.8 65 20 120/71 99 Room Air 02/24/17 16:00 18 02/24/17 12:34 98.0 64 18 121/76 98 Room Air 02/24/17 12:00 18 02/24/17 08:00 97.8 68 18 111/61 98 Room Air 02/24/17 08:00 18 02/24/17 04:00 97.7 60 19 121/65 97 Room Air 02/24/17 04:00 19 02/24/17 00:00 97.8 62 18 120/60 98 Room Air 02/24/17 00:00 18 02/23/17 20:00 98.4 66 18 131/78 98 Room Air 02/23/17 20:00 18 Intake and Output 02/24/17 02/25/17 19:00 07:00 Intake Total 1185 ml Output Total 500 ml Balance 685 ml Intake Oral 360 ml IV Total 825 ml Output Urine Total 500 ml Drainage Total 0 ml Height (Feet): 5 Height (Inches): 10.00 Weight (Pounds): 195 General Appearance: no apparent distress EENT: PERRL/EOMI Neck: non-tender Cardiovascular: normal peripheral pulses, normal rate, regular rhythm Respiratory/Chest: other - with left axillary wound vac Abdomen: normal bowel sounds, non tender, soft Extremities: normal range of motion Neurologic: pipeline welder II-XII grossly normal, no motor/sensory deficits Noris Nolan N.P. Feb 24, 2017 19:10
--- NOTE | 2017-02-24 19:39 | Cardiology Report ---
APPROVED REPORT EKG Measurement Heart [id number] Normal sinus rhythm with sinus arrhythmia Normal ECG
[2017-02-24 20:00] VITALS: BP 133/65
[2017-02-25] VITALS (19 sets, daily range): BP systolic 102–148; BP diastolic 56–82
[2017-02-25] MEDS: ceFAZolin sod 1 GM in D5W 55 ML IVP SCH ×3 (05:27→20:52)
[2017-02-25] MEDS: PCA shift volume MISC SCH ×2 (07:00→19:00)
[2017-02-25] MEDS: Heparin 5000 units/ml inj SUBQ SCH ×2 (09:00→20:52)
[2017-02-25] MEDS: Docusate 100mg cap ORAL SCH ×2 (09:00→17:48)
--- NOTE | 2017-02-25 09:34 | Pre-Procedure Note/Attestation ---
Pre-Procedure Note/Attestation Complete Prior to Procedure Planned Procedure: left Procedure Narrative: Flap closure of left axillary wound Indications for Procedure Pre-Operative Diagnosis: Left axillary open wound Attestation I attest that I discussed the nature of the procedure; its benefits; risks and complications; and alternatives (and the risks and benefits of such alternatives ), prior to the procedure, with the patient (or the patient's legal help desk representative). I attest that, if there was a reasonable possibility of needing a blood transfusion, the patient (or the patient's legal help desk representative) was given the [facility] standardized written summary, pursuant to the [place] Blood Safety Act ([place] Health and Safety Code # 1645, as amended). I attest that I re-evaluated the patient just prior to the surgery and that there has been no change in the patient's H&P, except as documented below: JAYLEEN CHEATHAM Feb 25, 2017 09:34
[2017-02-25] MEDS ORDERED: DiphenhydrAMINE 50mg/ml Inj IVP PRN ×2 (09:45→11:15)
[2017-02-25] MEDS ORDERED: Rate Change PCA 1 Each MISC PRN (09:45)
[2017-02-25] MEDS ORDERED: Zolpidem 5mg tab ORAL PRN (09:45)
[2017-02-25] MEDS ORDERED: PCA HYDROmorphone 1mg/ml 30 ML IV PRN (09:45)
[2017-02-25] MEDS ORDERED: PCA Education Pamphlet MISC ONE (09:45)
[2017-02-25] MEDS ORDERED: Sterile Water Irrig 1000ml IRRIG ONE (10:00)
[2017-02-25] MEDS ORDERED: Zemuron 50mg/5ml Inj IV ONE (10:00)
[2017-02-25] MEDS ORDERED: Ketorolac 30mg Inj ONE (10:00)
[2017-02-25] MEDS ORDERED: NS Irrig 1000ml ONE (10:00)
[2017-02-25] MEDS ORDERED: Neostigmine 1mg/ml 10ml Inj ONE (10:00)
[2017-02-25] MEDS ORDERED: Succinylcholine 20mg/ml 10ml vial ONE (10:00)
[2017-02-25] MEDS ORDERED: Propofol 200mg/20ml IV ONE (10:00)
[2017-02-25] MEDS ORDERED: fentaNYL 100 mcg/2 mL IV ONE (10:00)
[2017-02-25] MEDS ORDERED: Sodium Chloride 10ml vial INJ ONE (10:00)
[2017-02-25] MEDS ORDERED: Morphine Sulfate 10mg/ml Inj ONE (10:00)
[2017-02-25] MEDS ORDERED: Midazolam 2mg/2ml Inj ONE (10:00)
[2017-02-25] MEDS ORDERED: Glycopyrrolate 0.2mg/ml 1ml Vial ONE (10:00)
[2017-02-25] MEDS ORDERED: LR 1000ml ONE (10:00)
[2017-02-25] MEDS ORDERED: Surgicel 4in x 8in TOPIC ONE (10:09)
[2017-02-25] MEDS ORDERED: NeoSporin Gu Irrig 1ml Amp IRRIG ONE (10:09)
[2017-02-25] MEDS ORDERED: Bacitracin 50000 Units Vial ONE (10:09)
[2017-02-25] MEDS ORDERED: Lidocaine 1% 10mg/ml/Epi 0.005mg/ml 30ml vial INJ ONE (10:09)
[2017-02-25] MEDS ORDERED: LR 1000ml 1,000 ML IVLG SCH (11:11)
--- NOTE | 2017-02-25 11:11 | Anethesia Preoperative Eval ---
Anesthesia Pre-op PMH/ROS General Date of Evaluation: Feb 25, 2017 Time of Evaluation: 10:05 Anesthesiologist: Cyn ASA Score: ASA 2 Mallampati Score Class I : Soft palate, uvula, fauces, pillars visible Class II: Soft palate, uvula, fauces visible Class III: Soft palate, base of uvula visible Class IV: Only hard plate visible Mallampati Classification: Class II Surgeon: Deon Diagnosis: Recurrent HS Surgical Procedure: Revision and closure of L axillary wound Anesthesia History: none Family History: no anesthesia problems Allergies: Coded Allergies: No Known Allergies (Unverified , 02/21/17) Medications: see eMAR Past Medical History Cardiovascular: Denies: HTN, CAD, PA, valve dz, arrhythmia, other Pulmonary: Denies: asthma, COPD, [place], other Gastrointestinal/Genitourinary: Reports: GERD - mild, Denies: CRI, ESRD, other Neurologic/Psychiatric: Denies: dementia, CVA, depression/anxiety, TIA, other Endocrine: Denies: DM, hypothyroidism, steroids, other HEENT: Denies: cataract (L), cataract (R), glaucoma, [place] (L), [place] (R), other Hematology/Immune: Denies: anemia, DVT, bleeding disorder, other Musculoskeletal/Integumentary: Reports: other - recurrent HS, Denies: OA, RA, DJD, DDD, edema PMH Narrative: as above PSxH Narrative: See H&P Anesthesia Pre-op Phys. Exam Physician Exam Last Vital Signs Date Time Temp Pulse Resp B/P (MAP) Pulse Ox O2 Delivery O2 Flow Rate FiO2 02/25/17 08:00 98.4 68 17 113/63 98 Room Air 02/22/17 11:15 3.0 Constitutional: NAD Neurologic: CN 2-12 intact Cardiovascular: RRR, no M/R/G Respiratory: CTA Gastrointestinal: S/NT/ND Airway Exam Mallampati Score: Class II MO: full Neck: flexible ROM: full Teeth: intact Dentures: no upper, no lower Anesthesia Pre-op A/P Labs see Chart Risk Assessment & Plan Assessment: ASA 2 Plan: GA with ETT Status Change Before Surgery: No Pre-Antibiotics Drug: Ancef 1gr. Given Within 1 Hr of Incision: Yes Time Given: 10:38 ANEL BENNETT M.D. Feb 25, 2017 11:11
[2017-02-25] MEDS ORDERED: Ketorolac 30mg Inj IV PRN (11:15)
[2017-02-25] MEDS ORDERED: Meperidine 25mg/0.5ml Inj (FOR RIGORS ONLY) IV PRN (11:15)
[2017-02-25] MEDS ORDERED: Hydromorphone 0.5mg/0.5ml inj IVP PRN (11:15)
[2017-02-25] MEDS ORDERED: Midazolam 2mg/2ml Inj IVP PRN (11:15)
[2017-02-25] MEDS ORDERED: Metoclopramide 10mg/2ml Inj IVP PRN (11:15)
--- NOTE | 2017-02-25 11:38 | Operative Note - PDOC ---
Operative Note Operative Note Pre-op Diagnosis: Left axillary open wound Procedure: Left axillary wound closure Surgeon: Deon Design Maker: Mandy Anesthesia: general Specimen: yes Complications: none Estimated Blood Loss: minimal Drains: LELO Implant(s) used?: No JAYLEEN CHEATHAM Feb 25, 2017 11:38
[2017-02-25] MEDS ORDERED: Bacitracin Oint 15gm Tube TOPIC ONE (11:42)
[2017-02-25] MEDS: D5 1/2NS 1,000 ML IV SCH (11:50)
[2017-02-25] MEDS ORDERED: Neosporin Oint Ud Pkt TOPIC ONE (11:57)
--- NOTE | 2017-02-25 12:08 | Immediate Post-Op Evaluation ---
Immediate Post-Op Evalulation Immediate Post-Op Evalulation Procedure: Revision and closure of L axillary wound Date of Evaluation: Feb 25, 2017 Time of Evaluation: 12:07 IV Fluids: 1000 Blood Products: none Estimated Blood Loss: min Urinary Output: none Blood Pressure Systolic: 135 Blood Pressure Diastolic: 63 Pulse Rate: 86 Respiratory Rate: 22 O2 Sat by Pulse Oximetry: 99 Temperature (Fahrenheit): 97.6 Pain Score (1-10): 2 Nausea: No Vomiting: No Complications none Patient Status: awake, extubated, none Hydration Status: adequate ANEL BENNETT M.D. Feb 25, 2017 12:08
--- NOTE | 2017-02-25 16:25 | General Progress Note ---
Assessment/Plan Problem List: (1) Axillary abscess ICD Codes: L02.419 - Cutaneous abscess of limb, unspecified SNOMED: 54978635 (2) Cellulitis ICD Codes: L03.90 - Cellulitis, unspecified SNOMED: 034792267 (3) Hidradenitis suppurativa ICD Codes: L73.2 - Hidradenitis suppurativa SNOMED: 98729103 (4) Tobacco abuse ICD Codes: Z72.0 - Tobacco use SNOMED: 55122839, 292009770 Status: stable Assessment/Plan Appreciate surgery rec's s/p radical excision of left axillary tissue with flap elevation on 02/22/17 s/p left axillary wound closure on 02/25/17 Empiric IV ancef F/u cultures Encourage mobilization/ambulation Encourage incentive spirometry to optimize pulmonary hygiene DVT/GI prophylaxis as appropriate Pain control, supportive care, bowel regimen Counseled on tobacco cessation FULL CODE A total of 32min of extra time was spent in addition to normal encounter time for care/coordination and counseling. D/w pt, RN, surgery regarding mgmt and dispo. D/w Dr. Chavarria re postop rec's Subjective Date patient seen: Feb 25, 2017 Time patient seen: 16:23 ROS Limited/Unobtainable: No Constitutional: Reports: no symptoms HEENT: Reports: no symptoms Cardiovascular: Reports: no symptoms Respiratory: Reports: no symptoms Gastrointestinal/Abdominal: Reports: no symptoms Genitourinary: Reports: no symptoms Neurologic/Psychiatric: Reports: no symptoms Endocrine: Reports: no symptoms Hematologic/Lymphatic: Reports: no symptoms Allergies: Coded Allergies: No Known Allergies (Unverified , 02/21/17) All Systems: reviewed and negative except above Subjective No acute o/n events s/p left axillary wound closure today Pt doing well. Pain controlled. Denies f/c, n/v, d/c, chest pain, SOB Objective Last 24 Hour Vital Signs Date Time Temp Pulse Resp B/P (MAP) Pulse Ox O2 Delivery O2 Flow Rate FiO2 02/25/17 13:57 98.5 02/25/17 13:55 19 02/25/17 13:52 96.2 56 16 138/63 99 Nasal Cannula 3.0 02/25/17 13:40 20 02/25/17 13:35 98.5 61 19 124/67 100 Nasal Cannula 2.0 02/25/17 13:27 22 02/25/17 13:20 54 19 119/60 100 Nasal Cannula 2.0 02/25/17 13:05 54 12 124/63 100 Nasal Cannula 2.0 02/25/17 12:50 55 14 122/61 100 Nasal Cannula 2.0 02/25/17 12:45 56 14 124/59 100 Nasal Cannula 3.0 02/25/17 12:40 54 14 126/59 100 Nasal Cannula 3.0 02/25/17 12:35 58 15 126/60 100 Nasal Cannula 3.0 02/25/17 12:30 57 14 136/56 100 Nasal Cannula 3.0 02/25/17 12:25 59 15 133/60 100 Nasal Cannula 3.0 02/25/17 12:20 58 15 133/60 100 Nasal Cannula 3.0 02/25/17 12:10 76 15 148/75 100 Simple Mask 6.0 02/25/17 12:08 76 15 132/76 100 Simple Mask 6.0 02/25/17 12:08 86 22 99 02/25/17 12:03 93 23 135/63 100 Simple Mask 6.0 02/25/17 11:58 98.1 77 18 132/59 100 Simple Mask 6.0 02/25/17 08:00 98.4 68 17 113/63 98 Room Air 02/25/17 08:00 17 02/25/17 04:00 97.7 63 18 107/60 98 Room Air 02/25/17 04:00 17 02/25/17 00:00 16 02/24/17 20:00 98.1 75 18 133/65 95 Room Air 02/24/17 20:00 16 Intake and Output 02/25/17 02/26/17 19:00 07:00 Intake Total 1000 ml Output Total 20 ml Balance 980 ml IV Total 1000 ml Estimated Blood Loss 20 ml Height (Feet): 5 Height (Inches): 10.00 Weight (Pounds): 195 Objective General: alert, cooperative, no distress, appears stated age Head: normocephalic, without obvious abnormality, atraumatic Eyes: conjunctivae/corneas clear. PERRL, EOM's intact Throat: lips, mucosa, and tongue normal. MMM Neck: supple, symmetrical, trachea midline, and no JVD Lungs: clear to auscultation bilaterally Heart: regular rate and rhythm, S1, S2 normal, no murmur, click, rub or gallop Abdomen: soft, non-tender, non-distended, bowel sounds normal; no masses or organomegaly Extremities: extremities normal, atraumatic, no cyanosis or edema Pulses: 2+ and symmetric Skin: skin color, texture, turgor normal; no rashes or lesions Dressing c/d/i Neurologic: grossly normal, no focal deficits Sharon Lenz M.D. Feb 25, 2017 16:25
--- NOTE | 2017-02-25 20:15 | Operative Note - Dictated ---
DATE OF OPERATION: 02/25/2017 PREOPERATIVE DIAGNOSIS: Open left axillary wound. POSTOPERATIVE DIAGNOSIS: Open left axillary wound. PROCEDURES: 1. Preparation of left axillary wound for flap closure. 2. Readvancement of anterior chest wall flap for wound closure. 3. Transposition of the thoracodorsal artery flap that was previously raised into the left axillary defect. SURGEON: Angelo Chavarria M.D. BIOCHEMISTRY SPECIALIST: Juancarlos Galvan M.D. ANESTHESIA: General. COMPLICATIONS: None. DRAINS: Included a one size #10 Roger-Islas drain. DISPOSITION: Stable to the recovery room. Indications For Surgery: This is a 26-year-old male, who is now 72-hours postoperative from radical excision of left axillary infected tissue with flap elevation, who has undergone wound VAC treatment and is now prepared for definitive flap inset and coverage of his wound. He understands the risks and benefits of surgery and agrees to proceed. Details Of The Operation: The patient was brought to the operating room and laid in the supine position on the operating room table. His left axilla and left chest were prepped and draped in a sterile and usual fashion. We first began by debriding some of the left axillary wound in preparation for flap advancement and flap closure. Once the preparation of the wound was completed, the previously raised anterior chest wall flap based off of the perforators of the thoracoacromial artery was raised further to allow for further advancement of the flap. Once this was completed by proximal and distal incisions performed on the flap, we then also reelevated and released the thoracodorsal artery flap that had been previously elevated by releasing some of its inferior attachments. Once both flaps were fully mobilized, the wounds were copiously irrigated with pulse lavage and hemostasis was then achieved and then the donor site for the thoracodorsal artery flap was closed using #0 and 2-0 Vicryl sutures and the skin was closed with multiple interrupted 2-0 Prolene sutures and the anterior chest wall flap as well as the thoracodorsal artery flap were advanced into the left axillary defect and were brought together and the wound was closed using #0 and 2-0 Vicryl sutures and multiple interrupted 2-0 Prolene were used to close the skin in the left axilla as well. Dermabond was then applied into the wounds. Compression dressings were then also applied and the patient tolerated the procedure well with no complications. Angelo Chavarria M.D. DR: MAGALI JOB#: [id number] CC:
[2017-02-26] VITALS: BP 131/65
[2017-02-26] MEDS: D5 1/2NS 1,000 ML IV SCH (00:15)
[2017-02-26 04:00] VITALS: BP 124/64
[2017-02-26] MEDS: ceFAZolin sod 1 GM in D5W 55 ML IVP SCH ×3 (05:29→21:20)
[2017-02-26] MEDS: PCA shift volume MISC SCH (07:05)
--- NOTE | 2017-02-26 07:57 | General Progress Note ---
Progress Note Progress Note Pt seen and examined. POD # 1 from left axillary wound flap closure and doing well. Dressings CDI. Plan on DC in next 1-2 days. Jayleen Cheatham M.D. JAYLEEN CHEATHAM Feb 26, 2017 07:57
[2017-02-26 08:00] VITALS: BP 124/69
[2017-02-26] MEDS: Docusate 100mg cap ORAL SCH ×2 (08:53→17:13)
[2017-02-26] MEDS: Heparin 5000 units/ml inj SUBQ SCH ×2 (09:01→21:22)
--- NOTE | 2017-02-26 09:27 | 48 Hour Post Anesthesia Eval ---
Post Anesthesia Evaluation Procedure: Revision and closure of L axillary wound Date of Evaluation: Feb 26, 2017 Time of Evaluation: 15:10 Blood Pressure Systolic: 124 0: 69 Pulse Rate: 59 Respiratory Rate: 18 Temperature (Fahrenheit): 99.4 O2 Sat by Pulse Oximetry: 94 Airway: patent Nausea: No Vomiting: No If pain is > 6 Comment: 2 Hydration Status: adequate Cardiopulmonary Status: Stable Mental Status/LOC: patient returned to baseline Follow-up Care/Observations: As per surgery Post-Anesthesia Complications: No anesthetic complication Follow-up care needed: N/A CANDICE FORBES M.D. Feb 26, 2017 09:27
[2017-02-26] MEDS ORDERED: Hydromorphone 0.5mg/0.5ml inj IVP PRN (10:30)
[2017-02-26 12:18] VITALS: BP 140/77
[2017-02-26] MEDS ORDERED: NORCO 5-325 TA1 EACH ORAL (14:08)
[2017-02-26] MEDS ORDERED: KEFLEX500 MG ORAL (14:10)
[2017-02-26 15:51] VITALS: BP 130/72
--- NOTE | 2017-02-26 19:16 | General Progress Note ---
Assessment/Plan Problem List: (1) Axillary abscess ICD Codes: L02.419 - Cutaneous abscess of limb, unspecified SNOMED: 23691390 (2) Cellulitis ICD Codes: L03.90 - Cellulitis, unspecified SNOMED: 568905683 (3) Hidradenitis suppurativa ICD Codes: L73.2 - Hidradenitis suppurativa SNOMED: 18749436 (4) Tobacco abuse ICD Codes: Z72.0 - Tobacco use SNOMED: 18855411, [id number] Status: stable Assessment/Plan Appreciate surgery rec's s/p radical excision of left axillary tissue with flap elevation on 02/22/17 s/p left axillary wound closure on 02/25/17 Empiric IV ancef F/u cultures Encourage mobilization/ambulation Encourage incentive spirometry to optimize pulmonary hygiene DVT/GI prophylaxis as appropriate Pain control, supportive care, bowel regimen Counseled on tobacco cessation DC planning for FULL CODE A total of 31min of extra time was spent in addition to normal encounter time for care/coordination and counseling. D/w pt, RN, surgery regarding mgmt and dispo. D/w Dr. Chavarria re postop rec's Subjective Date patient seen: Feb 26, 2017 Time patient seen: 13:30 Constitutional: Reports: no symptoms HEENT: Reports: no symptoms Cardiovascular: Reports: no symptoms Respiratory: Reports: cough Gastrointestinal/Abdominal: Reports: no symptoms Genitourinary: Reports: no symptoms Neurologic/Psychiatric: Reports: no symptoms Endocrine: Reports: no symptoms Hematologic/Lymphatic: Reports: no symptoms Allergies: Coded Allergies: No Known Allergies (Unverified , 02/21/17) Subjective No acute o/n events s/p left axillary wound closure POD#1 Pt doing well. Pain controlled. Denies f/c, n/v, d/c, chest pain, SOB C/o mild cough and increased pain in axilla when coughing Objective Last 24 Hour Vital Signs Date Time Temp Pulse Resp B/P (MAP) Pulse Ox O2 Delivery O2 Flow Rate FiO2 02/26/17 15:51 97.8 75 20 130/72 96 Room Air 02/26/17 12:18 98.4 67 20 140/77 95 Room Air 02/26/17 09:27 59 18 94 02/26/17 08:00 99.4 59 19 124/69 94 Room Air 02/26/17 08:00 18 02/26/17 04:00 97.5 74 19 124/64 96 Room Air 02/26/17 04:00 18 02/26/17 00:00 98.0 70 18 131/65 96 Room Air 02/26/17 00:00 18 02/25/17 20:00 98.5 74 18 146/82 99 Room Air 02/25/17 20:00 18 02/25/17 19:34 97.0 Intake and Output 02/26/17 02/27/17 19:00 07:00 Intake Total 1618 ml Output Total 1910 ml Balance -292 ml Intake Oral 1338 ml IV Total 280 ml Output Urine Total 1900 ml Drainage Total 10 ml # Voids 4 Height (Feet): 5 Height (Inches): 10.00 Weight (Pounds): 195 Objective General: alert, cooperative, no distress, appears stated age Head: normocephalic, without obvious abnormality, atraumatic Eyes: conjunctivae/corneas clear. PERRL, EOM's intact Throat: lips, mucosa, and tongue normal. MMM Neck: supple, symmetrical, trachea midline, and no JVD Lungs: clear to auscultation bilaterally Heart: regular rate and rhythm, S1, S2 normal, no murmur, click, rub or gallop Abdomen: soft, non-tender, non-distended, bowel sounds normal; no masses or organomegaly Extremities: extremities normal, atraumatic, no cyanosis or edema Pulses: 2+ and symmetric Skin: skin color, texture, turgor normal; no rashes or lesions Dressing c/d/i Neurologic: grossly normal, no focal deficits Sharon Lenz M.D. Feb 26, 2017 19:16
[2017-02-26 20:00] VITALS: BP 124/71
[2017-02-27] VITALS: BP 132/75
[2017-02-27 04:00] VITALS: BP 128/74
[2017-02-27] MEDS: ceFAZolin sod 1 GM in D5W 55 ML IVP SCH ×3 (05:27→20:56)
[2017-02-27 06:59] LABS: BASOPHILS % (AUTO) 0.8 % (0.0-2.0); EOSINOPHILS % (AUTO) 2.3 % (0.0-3.0); LYMPHOCYTES % (AUTO) 21.9 % (20.0-45.0); MEAN CORPUSCULAR HEMOGLOBIN 33.4 PG (27.0-31.0); MEAN CORPUSCULAR HGB CONC 35.6 G/DL (32.0-36.0); MEAN CORPUSCULAR VOLUME 94 FL (80-99); MEAN PLATELET VOLUME 6.3 FL (6.5-10.1); MONOCYTES % (AUTO) 7.2 % (1.0-10.0); NEUTROPHILS % (AUTO) 67.8 % (45.0-75.0); PLATELET COUNT 281 K/UL (150-450); RED BLOOD COUNT 4.41 M/UL (4.70-6.10); RED CELL DISTRIBUTION WIDTH 10.9 % (11.6-14.8); WHITE BLOOD COUNT 10.7 K/UL (4.8-10.8)
[2017-02-27 07:27] LABS: ANION GAP 9 (5-15); CALCIUM 9.2 mg/dL (8.6-10.2); CARBON DIOXIDE 28 mEQ/L (20-30); CHLORIDE 101 mEQ/L (98-107); GLOMERULAR FILTRATION RATE > 60 mL/min (>60); HEMOLYSIS 0; SODIUM 138 mEQ/L (135-145)
[2017-02-27 08:00] VITALS: BP 124/75
[2017-02-27] MEDS: Docusate 100mg cap ORAL SCH ×2 (08:51→17:07)
[2017-02-27] MEDS: Heparin 5000 units/ml inj SUBQ SCH ×2 (08:53→20:55)
[2017-02-27 12:00] VITALS: BP 118/63
[2017-02-27] MEDS ORDERED: Neosporin Oint Ud Pkt TOPIC ONE (12:45)
[2017-02-27 16:00] VITALS: BP 145/81
[2017-02-27] MEDS ORDERED: D5 1/2NS 1000ml IV ONE (16:47)
[2017-02-27] MEDS ORDERED: Tubing IV Secondary IV ONE (16:47)
[2017-02-27] MEDS ORDERED: TraZODone 50mg tab ORAL PRN (17:30)
--- NOTE | 2017-02-27 17:36 | General Progress Note ---
Assessment/Plan Problem List: (1) Axillary abscess ICD Codes: L02.419 - Cutaneous abscess of limb, unspecified SNOMED: 30389008 (2) Cellulitis ICD Codes: L03.90 - Cellulitis, unspecified SNOMED: 947226479 (3) Hidradenitis suppurativa ICD Codes: L73.2 - Hidradenitis suppurativa SNOMED: 09018174 (4) Tobacco abuse ICD Codes: Z72.0 - Tobacco use SNOMED: 28517324, 039918184 Status: stable Assessment/Plan Appreciate surgery rec's s/p radical excision of left axillary tissue with flap elevation on 02/22/17 s/p left axillary wound closure on 02/25/17 Empiric IV ancef F/u cultures Encourage mobilization/ambulation Encourage incentive spirometry to optimize pulmonary hygiene DVT/GI prophylaxis as appropriate Pain control, supportive care, bowel regimen Counseled on tobacco cessation DC planning for FULL CODE A total of 32min of extra time was spent in addition to normal encounter time for care/coordination and counseling. D/w pt, RN, surgery regarding mgmt and dispo. D/w Dr. Chaavrria re postop rec's Subjective Date patient seen: Feb 27, 2017 Time patient seen: 16:00 Constitutional: Reports: no symptoms HEENT: Reports: no symptoms Cardiovascular: Reports: no symptoms Respiratory: Reports: no symptoms Gastrointestinal/Abdominal: Reports: no symptoms Genitourinary: Reports: no symptoms Neurologic/Psychiatric: Reports: no symptoms Endocrine: Reports: no symptoms Hematologic/Lymphatic: Reports: no symptoms Allergies: Coded Allergies: No Known Allergies (Unverified , 02/21/17) All Systems: reviewed and negative except above Subjective No acute o/n events s/p left axillary wound closure POD#2 Pt doing well. Pain controlled. Denies f/c, n/v, d/c, chest pain, SOB Wants something to help him sleep tonight Objective Last 24 Hour Vital Signs Date Time Temp Pulse Resp B/P (MAP) Pulse Ox O2 Delivery O2 Flow Rate FiO2 02/27/17 16:00 98.0 77 20 145/81 96 Nasal Cannula 2.0 02/27/17 12:00 98.3 69 18 118/63 97 Room Air 02/27/17 08:00 98.1 70 19 124/75 97 Nasal Cannula 3.0 02/27/17 04:00 97.6 75 18 128/74 99 Room Air 02/27/17 00:00 97.2 71 20 132/75 99 Room Air 02/26/17 20:00 98.1 77 18 124/71 97 Room Air Intake and Output 02/27/17 02/28/17 19:00 07:00 Intake Total 250 ml Balance 250 ml Intake Oral 250 ml # Voids 1 Laboratory Tests 02/27/17 04:45: White Blood Count 10.7, Red Blood Count 4.41L, Hemoglobin 14.7, Hematocrit 41.4L , Mean Corpuscular Volume 94, Mean Corpuscular Hemoglobin 33.4H, Mean Corpuscular Hemoglobin Concent 35.6, Red Cell Distribution Width 10.9L, Platelet Count 281, Mean Platelet Volume 6.3L, Neutrophils (%) (Auto) 67.8, Lymphocytes (%) (Auto) 21.9, Monocytes (%) (Auto) 7.2, Eosinophils (%) (Auto) 2.3, Basophils (%) (Auto) 0.8, Sodium Level 138, Potassium Level 4.0, Chloride Level 101, Carbon Dioxide Level 28, Anion Gap 9, Blood Urea Nitrogen 9, Creatinine 1.0, Estimat Glomerular Filtration Rate > 60, Glucose Level 97, Calcium Level 9.2 Height (Feet): 5 Height (Inches): 10.00 Weight (Pounds): 195 Objective General: alert, cooperative, no distress, appears stated age Head: normocephalic, without obvious abnormality, atraumatic Eyes: conjunctivae/corneas clear. PERRL, EOM's intact Throat: lips, mucosa, and tongue normal. MMM Neck: supple, symmetrical, trachea midline, and no JVD Lungs: clear to auscultation bilaterally Heart: regular rate and rhythm, S1, S2 normal, no murmur, click, rub or gallop Abdomen: soft, non-tender, non-distended, bowel sounds normal; no masses or organomegaly Extremities: extremities normal, atraumatic, no cyanosis or edema Pulses: 2+ and symmetric Skin: skin color, texture, turgor normal; no rashes or lesions Dressing c/d/i Neurologic: grossly normal, no focal deficits Sharon Lenz M.D. Feb 27, 2017 17:36
[2017-02-27 20:17] VITALS: BP 129/74
[2017-02-28 00:31] VITALS: BP 127/68
[2017-02-28 04:00] VITALS: BP 132/75
[2017-02-28] MEDS: ceFAZolin sod 1 GM in D5W 55 ML IVP SCH ×2 (06:05→13:15)
[2017-02-28 08:00] VITALS: BP 137/63
[2017-02-28] MEDS: Heparin 5000 units/ml inj SUBQ SCH (09:00)
[2017-02-28] MEDS: Docusate 100mg cap ORAL SCH (09:22)
[2017-02-28] MEDS ORDERED: Neosporin Oint 15gm TOPIC SCH ×2 (10:30→11:00)
[2017-02-28 12:00] VITALS: BP 130/77
--- NOTE | 2017-02-28 13:15 | Discharge Summary ---
Discharge Summary Hospital Course Date of Admission Feb 21, 2017 at 12:55 Date of Discharge 02/28/17 Admitting Diagnosis cellulitis, abscess Reason for Hospitalization: Abscess HPI 26yo male with pmh of hiradenitis suppurative who presents with L axilla lesion. Pt noted lesions started abt 1 week ago described as raised lesions with swelling/redness/drainage. Lesions are worsening. He had similar lesions on R axilla abt 1 year Consultations Plastic surgery Hospital Course Pt was admitted and seen by surgery. He was continued on IV antibiotics. He underwent radical excision of left axillary tissue with flap elevation on and then left axillary wound closure on 02/25/17. Pt tolerated the procedure well. Once pain controlled and wounds stable per surgery, pt was discharged home. Discharge physical exam General: alert, cooperative, no distress, appears stated age Head: normocephalic, without obvious abnormality, atraumatic Eyes: conjunctivae/corneas clear. PERRL, EOM's intact Throat: lips, mucosa, and tongue normal. MMM Neck: supple, symmetrical, trachea midline, and no JVD Lungs: clear to auscultation bilaterally Heart: regular rate and rhythm, S1, S2 normal, no murmur, click, rub or gallop Abdomen: soft, non-tender, non-distended, bowel sounds normal; no masses or organomegaly Extremities: extremities normal, atraumatic, no cyanosis or edema Pulses: 2+ and symmetric Skin: skin color, texture, turgor normal; no rashes or lesions Neurologic: grossly normal, no focal deficits Dressings c/d/i Discharge Medications New Medications: Cephalexin* (Keflex*) 500 Mg Capsule 500 MG ORAL Q6H for 7 Days, #28 CAP 0 Refills Hydrocodone Bit/Acetaminophen 5-325* ([place] 5-325*) 1 Each Tablet 1 TAB ORAL Q6H PRN, #30 TAB 0 Refills Continued Medications: No Known Medications* (NKM - No Known Medications*) . 0 ., 0 Refills Discharge Condition Upon Discharge: stable Discharge Disposition Patient was discharged to Home (01) Discharge Diagnoses: (1) Abscess (2) Hidradenitis suppurativa (3) Tobacco abuse Sharon Lenz M.D. Feb 28, 2017 13:15
== END 2017-02-28 14:40 | disposition home or self-care (01) | DRG 575 ==
LOC: EMR 12:35 → 3E 12:55 → EDBEDREQ 13:28
DX: L03.112 Cellulitis of left axilla (principal); L73.2 Hidradenitis suppurativa; Z72.0 Tobacco use
CPT/HCPCS: 36415; 71010; 80048; 80053; 82550; 82553; 84484; 85025; 85610; 85730; 93005; 94003; 94150; 99285; J2180; J2250; J2405; J2710

== ENCOUNTER 2017-03-18 08:37 | Inpatient (IN) | payer OTHER ==
[2017-03-18] VITALS (14 sets, daily range): BP systolic 108–145; BP diastolic 56–83
[~2017-03-18] VITALS: Ht 177.8 cm; Wt 87.1 kg
[~2017-03-18 08:37] MED LIST: KEFLEX500 MG ORAL; NKM; NORCO 5-325 TA1 EACH ORAL
--- NOTE | 2017-03-18 09:53 | Emergency Room Report ---
History of Present Illness General Chief Complaint: Wound Recheck/Suture Removal Source: Patient Present Illness HPI 27-year-old male history of hidradenitis, status post surgery 2 weeks ago, brought in for wound recheck. Patient states that a few days ago the sutures had come out, wound was opening, complains of pain to area, not complaining of any fever or chills, some purulent drainage. Allergies: Coded Allergies: No Known Allergies (Unverified , 02/21/17) Patient History Past Medical History: see triage record Past Surgical History: none Pertinent Family History: none Reviewed Nursing Documentation: PMH: Agreed, PSxH: Agreed Nursing Documentation-PMH Past Medical History: No History, Except For Hx Cancer: No Hx Gastrointestinal Problems: No Hx Neurological Problems: No Review of Systems All Other Systems: negative except mentioned in HPI Physical Exam Vital Signs Date Time Temp Pulse Resp B/P (MAP) Pulse Ox O2 Delivery O2 Flow Rate FiO2 03/18/17 08:49 98.2 83 18 123/83 98 Room Air Sp02 EP Interpretation: reviewed, normal General Appearance: normal inspection, well appearing, no apparent distress, alert, GCS 15, non-toxic Head: normocephalic, atraumatic Eyes: bilateral eye normal inspection, bilateral eye PERRL, bilateral eye EOMI ENT: normal ENT inspection, normal pharynx, normal voice, moist mucus membranes Neck: normal inspection, full range of motion, supple Respiratory: normal inspection, lungs clear, normal breath sounds, no respiratory distress, no retraction, no wheezing, speaking full sentences, chest symmetrical Cardiovascular #1: normal inspection, regular rate, rhythm, no edema, normal capillary refill Cardiovascular #2: 2+ radial (R), 2+ radial (L) Gastrointestinal: normal inspection, non tender, soft, non-distended, no guarding Genitourinary: no CVA tenderness Musculoskeletal: back normal, normal range of motion, other - Left underarm, with 3 incisions, multiple sutures, wound dehiscence, granulation tissue/yellow drainage, tender palpation Neurologic: normal inspection, alert, oriented x3, responsive, motor strength/ tone normal, sensory intact, normal gait, speech normal Psychiatric: normal inspection, judgement/insight normal, memory normal Skin: normal inspection, normal color, no rash, warm/dry, well hydrated, normal turgor Medical Decision Making Diagnostic Impression: Primary Impression: Encounter for wound re-check Additional Impressions: Encounter for postoperative wound check Wound dehiscence ER Course 27-year-old male with wound dehiscence, surgical procedure 2 weeks ago for hidradenitis DDX: Wound dehiscence, hidradenitis Plan: Obtain labs, admission for OR procedure ER course: Patient has been monitored during ED stay Disposition: Patient is to be admitted to [facility] D/W Dr Parrish who has accepted pt for admission D/W surgery Dr. Chavarria Please note that this Emergency Department Report was dictated using [employer] technology software, occasionally this can lead to erroneous entry secondary to interpretation by the dictation equipment. Laboratory Tests Test 03/18/17 10:43 White Blood Count 10.6 K/UL (4.8-10.8) Red Blood Count 5.01 M/UL (4.70-6.10) Hemoglobin 15.8 G/DL (14.2-18.0) Hematocrit 46.9 % (42.0-52.0) Mean Corpuscular Volume 94 FL (80-99) Mean Corpuscular Hemoglobin 31.6 PG (27.0-31.0) H Mean Corpuscular Hemoglobin Concent 33.7 G/DL (32.0-36.0) Red Cell Distribution Width 11.5 % (11.6-14.8) L Platelet Count 318 K/UL (150-450) Mean Platelet Volume 6.2 FL (6.5-10.1) L Neutrophils (%) (Auto) 66.9 % (45.0-75.0) Lymphocytes (%) (Auto) 25.4 % (20.0-45.0) Monocytes (%) (Auto) 5.1 % (1.0-10.0) Eosinophils (%) (Auto) 1.6 % (0.0-3.0) Basophils (%) (Auto) 1.0 % (0.0-2.0) Prothrombin Time 10.2 SEC (9.30-11.50) Prothrombin Time INR 1.0 (0.9-1.1) Sodium Level 142 MMOL/L (136-145) Potassium Level 4.4 MMOL/L (3.5-5.1) Chloride Level 107 MMOL/L (98-107) Carbon Dioxide Level 24 MMOL/L (21-32) Anion Gap 11 mmol/L (5-15) Blood Urea Nitrogen 11 mg/dL (7-18) Creatinine 0.9 MG/DL (0.55-1.30) Estimate Glomerular Filtration Rate > 60 mL/min (>60) Glucose Level 91 MG/DL (74-106) Calcium Level 9.1 MG/DL (8.5-10.1) Total Bilirubin 0.6 MG/DL (0.2-1.0) Aspartate Amino Transferase (AST) 19 U/L (15-37) Alanine Aminotransferase (ALT) 30 U/L (12-78) Alkaline Phosphatase 66 U/L (46-116) Total Protein 7.6 G/DL (6.4-8.2) Albumin 3.8 G/DL (3.4-5.0) Globulin 3.8 g/dL Albumin/Globulin Ratio 1.0 (1.0-2.7) Last Vital Signs Date Time Temp Pulse Resp B/P (MAP) Pulse Ox O2 Delivery O2 Flow Rate FiO2 03/18/17 08:57 98.2 78 18 123/83 98 Room Air Disposition: ADMITTED INPATIENT Condition: Serious Referrals: NOT CHOSEN ITA/,REFERRING (PCP) Rosemary Sharma M.D. Mar 18, 2017 09:53
[2017-03-18] MEDS ORDERED: Milk of Magnesia 30ml Ud ORAL PRN ×2 (10:15→21:00)
[2017-03-18] MEDS ORDERED: Mylanta II UD 30ml ORAL PRN ×2 (10:15→11:00)
[2017-03-18] MEDS ORDERED: Morphine Sulfate 4mg/ml Inj IVP PRN (10:15)
[2017-03-18] MEDS ORDERED: Morphine Sulfate 2mg/ml Inj IVP PRN ×2 (10:15→11:00)
[2017-03-18] MEDS: D5 1/2NS 1,000 ML IV SCH ×2 (11:00→16:27)
[2017-03-18] MEDS ORDERED: Morphine Sulfate 10mg/ml Inj IVP PRN (11:00)
[2017-03-18 11:07] LABS: EOSINOPHILS % (AUTO) 1.6 % (0.0-3.0); LYMPHOCYTES % (AUTO) 25.4 % (20.0-45.0); MEAN CORPUSCULAR HEMOGLOBIN 31.6 PG (27.0-31.0); MEAN CORPUSCULAR HGB CONC 33.7 G/DL (32.0-36.0); MEAN CORPUSCULAR VOLUME 94 FL (80-99); MEAN PLATELET VOLUME 6.2 FL (6.5-10.1); MONOCYTES % (AUTO) 5.1 % (1.0-10.0); NEUTROPHILS % (AUTO) 66.9 % (45.0-75.0); PLATELET COUNT 318 K/UL (150-450); RED BLOOD COUNT 5.01 M/UL (4.70-6.10); RED CELL DISTRIBUTION WIDTH 11.5 % (11.6-14.8); WHITE BLOOD COUNT 10.6 K/UL (4.8-10.8)
[2017-03-18 11:19] LABS: PROTHROMBIN TIME 10.2 SEC (9.30-11.50)
[2017-03-18 11:36] LABS: ALANINE AMINOTRANSFERASE 30 U/L (12-78); ANION GAP 11 mmol/L (5-15); ASPARTATE AMINO TRANSFERASE 19 U/L (15-37); CALCIUM 9.1 MG/DL (8.5-10.1); CARBON DIOXIDE 24 MMOL/L (21-32); CHLORIDE 107 MMOL/L (98-107); CREATININE 0.9 MG/DL (0.55-1.30); GLOMERULAR FILTRATION RATE > 60 mL/min (>60); POTASSIUM 4.4 MMOL/L (3.5-5.1); SODIUM 142 MMOL/L (136-145); TOTAL PROTEIN 7.6 G/DL (6.4-8.2)
[2017-03-18] MEDS ORDERED: Propofol 200mg/20ml IV ONE (12:19)
[2017-03-18] MEDS ORDERED: Bacitracin 50000 Units Vial ONE (12:19)
[2017-03-18] MEDS ORDERED: ceFAZolin 1gm/50ml Premix 50 ML IV ONE (12:19)
[2017-03-18] MEDS ORDERED: NeoSporin Gu Irrig 1ml Amp IRRIG ONE (12:20)
[2017-03-18] MEDS ORDERED: Lidocaine 1% 10mg/ml/EPI 0.01mg/ml 50ml INJ ONE (12:20)
--- NOTE | 2017-03-18 12:26 | Pre-Procedure Note/Attestation ---
Pre-Procedure Note/Attestation Complete Prior to Procedure Planned Procedure: left Procedure Narrative: Left axillary wound debridement and wound closure Attestation I attest that I discussed the nature of the procedure; its benefits; risks and complications; and alternatives (and the risks and benefits of such alternatives ), prior to the procedure, with the patient (or the patient's legal malt liquors sales representative). I attest that, if there was a reasonable possibility of needing a blood transfusion, the patient (or the patient's legal malt liquors sales representative) was given the [facility] standardized written summary, pursuant to the [place] Viviane Blood Safety Act ([place] Health and Safety Code # 1645, as amended). I attest that I re-evaluated the patient just prior to the surgery and that there has been no change in the patient's H&P, except as documented below: JAYLEEN CHEATHAM Mar 18, 2017 12:26
[2017-03-18] MEDS ORDERED: NS Irrig 1000ml ONE (12:30)
[2017-03-18] MEDS ORDERED: Norco 10mg/325mg tab ORAL PRN (12:30)
[2017-03-18] MEDS ORDERED: Hydromorphone 0.5mg/0.5ml inj IVP PRN ×2 (12:30)
[2017-03-18] MEDS ORDERED: DiphenhydrAMINE 50mg/ml Inj IVP PRN ×2 (12:30→13:15)
[2017-03-18] MEDS ORDERED: Midazolam 2mg/2ml Inj ONE (12:30)
[2017-03-18] MEDS ORDERED: Sterile Water Irrig 1000ml IRRIG ONE (12:30)
[2017-03-18] MEDS ORDERED: Norco 5mg/325mg tab ORAL PRN (12:30)
[2017-03-18] MEDS ORDERED: Zolpidem 5mg tab ORAL PRN (12:30)
[2017-03-18] MEDS ORDERED: Ketorolac 30mg Inj ONE (12:30)
[2017-03-18] MEDS ORDERED: fentaNYL 100 mcg/2 mL IV ONE (12:30)
[2017-03-18] MEDS ORDERED: Surgicel 4in x 8in TOPIC ONE (12:49)
[2017-03-18] MEDS ORDERED: LR 1000ml 1,000 ML IVLG SCH (13:02)
--- NOTE | 2017-03-18 13:02 | Anethesia Preoperative Eval ---
Anesthesia Pre-op PMH/ROS General Date of Evaluation: Mar 18, 2017 Time of Evaluation: 12:17 Anesthesiologist: Cyn ASA Score: ASA 2 Mallampati Score Class I : Soft palate, uvula, fauces, pillars visible Class II: Soft palate, uvula, fauces visible Class III: Soft palate, base of uvula visible Class IV: Only hard plate visible Mallampati Classification: Class II Surgeon: Deon Diagnosis: Recurrent HS Surgical Procedure: Reviison and closure of L axillary wound Anesthesia History: none Family History: no anesthesia problems Allergies: Coded Allergies: No Known Allergies (Unverified , 02/21/17) Past Medical History Cardiovascular: Denies: HTN, CAD, [place], valve dz, arrhythmia, other Pulmonary: Denies: asthma, COPD, [place], other Gastrointestinal/Genitourinary: Denies: GERD, CRI, ESRD, other Neurologic/Psychiatric: Denies: dementia, CVA, depression/anxiety, TIA, other Endocrine: Denies: DM, hypothyroidism, steroids, other HEENT: Denies: cataract (L), cataract (R), glaucoma, [place] (L), [place] (R), other Hematology/Immune: Denies: anemia, DVT, bleeding disorder, other Musculoskeletal/Integumentary: Reports: other - recurrent HS PMH Narrative: as above PSxH Narrative: Multiple for HS treatment Anesthesia Pre-op Phys. Exam Physician Exam Last Vital Signs Date Time Temp Pulse Resp B/P (MAP) Pulse Ox O2 Delivery O2 Flow Rate FiO2 03/18/17 10:42 98.2 78 18 123/80 98 Room Air Constitutional: NAD Neurologic: CN 2-12 intact Cardiovascular: RRR, no M/R/G Respiratory: CTA Gastrointestinal: S/NT/ND Airway Exam Mallampati Score: Class II MO: full Neck: flexible ROM: full Teeth: intact Dentures: no upper, no lower Anesthesia Pre-op A/P Labs Hematology Test 03/18/17 10:43 White Blood Count 10.6 K/UL (4.8-10.8) Red Blood Count 5.01 M/UL (4.70-6.10) Hemoglobin 15.8 G/DL (14.2-18.0) Hematocrit 46.9 % (42.0-52.0) Mean Corpuscular Volume 94 FL (80-99) Mean Corpuscular Hemoglobin 31.6 PG (27.0-31.0) H Mean Corpuscular Hemoglobin Concent 33.7 G/DL (32.0-36.0) Red Cell Distribution Width 11.5 % (11.6-14.8) L Platelet Count 318 K/UL (150-450) Mean Platelet Volume 6.2 FL (6.5-10.1) L Neutrophils (%) (Auto) 66.9 % (45.0-75.0) Lymphocytes (%) (Auto) 25.4 % (20.0-45.0) Monocytes (%) (Auto) 5.1 % (1.0-10.0) Eosinophils (%) (Auto) 1.6 % (0.0-3.0) Basophils (%) (Auto) 1.0 % (0.0-2.0) Coagulation Test 03/18/17 10:43 Prothrombin Time 10.2 SEC (9.30-11.50) Prothromb Time International Ratio 1.0 (0.9-1.1) Chemistry Test 03/18/17 10:43 Sodium Level 142 MMOL/L (136-145) Potassium Level 4.4 MMOL/L (3.5-5.1) Chloride Level 107 MMOL/L (98-107) Carbon Dioxide Level 24 MMOL/L (21-32) Anion Gap 11 mmol/L (5-15) Blood Urea Nitrogen 11 mg/dL (7-18) Creatinine 0.9 MG/DL (0.55-1.30) Estimat Glomerular Filtration Rate > 60 mL/min (>60) Glucose Level 91 MG/DL (74-106) Calcium Level 9.1 MG/DL (8.5-10.1) Total Bilirubin 0.6 MG/DL (0.2-1.0) Aspartate Amino Transf (AST/SGOT) 19 U/L (15-37) Alanine Aminotransferase (ALT/SGPT) 30 U/L (12-78) Alkaline Phosphatase 66 U/L (46-116) Total Protein 7.6 G/DL (6.4-8.2) Albumin 3.8 G/DL (3.4-5.0) Globulin 3.8 g/dL Albumin/Globulin Ratio 1.0 (1.0-2.7) Risk Assessment & Plan Assessment: ASA 2 Plan: GA with LMA Status Change Before Surgery: No Pre-Antibiotics Drug: Ancef 1 gr. Given Within 1 Hr of Incision: Yes Time Given: 12:54 ANEL BENNETT M.D. Mar 18, 2017 13:01
[2017-03-18] MEDS ORDERED: fentaNYL 100 mcg/2 mL IV PRN (13:15)
[2017-03-18] MEDS ORDERED: Meperidine 50mg/ml Inj(FOR RIGORS ONLY) IV PRN (13:15)
[2017-03-18] MEDS ORDERED: Midazolam 2mg/2ml Inj IVP PRN (13:15)
[2017-03-18] MEDS ORDERED: Metoclopramide 10mg/2ml Inj IVP PRN (13:15)
--- NOTE | 2017-03-18 13:20 | Immediate Post-Op Evaluation ---
Immediate Post-Op Evalulation Immediate Post-Op Evalulation Procedure: Revision and closure of L axillary wound Date of Evaluation: Mar 18, 2017 Time of Evaluation: 13:40 IV Fluids: 600 Blood Products: none Estimated Blood Loss: min Urinary Output: none Blood Pressure Systolic: 114 Blood Pressure Diastolic: 54 Pulse Rate: 66 Respiratory Rate: 20 O2 Sat by Pulse Oximetry: 99 Temperature (Fahrenheit): 97.6 Pain Score (1-10): 2 Nausea: No Vomiting: No Complications none Patient Status: reacts, patent, none Hydration Status: adequate ANEL BENNETT M.D. Mar 18, 2017 13:20
--- NOTE | 2017-03-18 13:26 | Operative Note - PDOC ---
Operative Note Operative Note Pre-op Diagnosis: Left axillary wound dehiscence Procedure: Closure of left axillary wound Post-op Diagnosis: same as pre-op Surgeon: Deon Director Of Global Marketing: Vilma Anesthesia: general Specimen: none Complications: none Condition: stable Estimated Blood Loss: minimal Drains: none Implant(s) used?: No JAYLEEN CHEATHAM Mar 18, 2017 13:26
[2017-03-18] MEDS: Hydromorphone 0.5mg/0.5ml inj IVP PRN ×2 (14:07→14:29)
--- NOTE | 2017-03-18 16:48 | History and Physical ---
History of Present Illness General Date patient seen: Mar 18, 2017 Time patient seen: 16:48 Reason for Hospitalization: wound dehiscense Present Illness HPI 26yo male with pmh of hidradenitis suppurative s/p recent radical excission of L axillary tissue w/ flap elevation on 02/22/17 and then L axillary wound closure on 02/25/17 who presents with L axilla wound dehiscence. Pt noted reopening of sure of L axillary wound. C/o worsening pain, f/c and some purulent drainage. Pt denies f/c, n/v/d/c, abd pain, chest pain, SOB. Allergies: Coded Allergies: No Known Allergies (Unverified , 02/21/17) Medication History Scheduled Cephalexin* (Keflex*), 500 MG ORAL Q6H No Known Medications* (NKM - No Known Medications*), 0 ., (Reported) Scheduled PRN Hydrocodone Bit/Acetaminophen 5-325* ([place] 5-325*), 1 TAB ORAL Q6H PRN Patient History History Provided By: Patient, Medical Record, PMD Healthcare decision maker Resuscitation status Full Code Advanced Directive on File Past Medical/Surgical History Past Medical/Surgical History: (1) Hidradenitis suppurativa Family History Family History: Cardiac disorder in grandfather FH: HTN (hypertension) Social History Social History: (1) Tobacco abuse Review of Systems ROS Narrative CONSTITUTIONAL: No weight loss, fever, chills, weakness or fatigue. HEENT: Eyes: No visual loss, blurred vision, double vision or yellow sclerae. Ears, Nose, Throat: No hearing loss, sneezing, congestion, runny nose or sore throat. SKIN: No rash or itching. CARDIOVASCULAR: No chest pain, chest pressure or chest discomfort. No palpitations or edema. RESPIRATORY: No shortness of breath, cough or sputum. GASTROINTESTINAL: No anorexia, nausea, vomiting or diarrhea. No abdominal pain or blood. NEUROLOGICAL: No headache, dizziness, syncope, paralysis, ataxia, numbness or tingling in the extremities. No change in bowel or bladder control. MUSCULOSKELETAL: No muscle, back pain, joint pain or stiffness. HEMATOLOGIC: No anemia, bleeding or bruising. LYMPHATICS: No enlarged nodes. No history of splenectomy. PSYCHIATRIC: No history of depression or anxiety. ENDOCRINOLOGIC: No reports of sweating, cold or heat intolerance. No polyuria or polydipsia. ALLERGIES: No history of asthma, hives, eczema or rhinitis. Physical Exam Physical Exam Narrative General: alert, cooperative, no distress, appears stated age Head: normocephalic, without obvious abnormality, atraumatic Eyes: conjunctivae/corneas clear. PERRL, EOM's intact Throat: lips, mucosa, and tongue normal. MMM Neck: supple, symmetrical, trachea midline, and no JVD Lungs: clear to auscultation bilaterally Heart: regular rate and rhythm, S1, S2 normal, no murmur, click, rub or gallop Abdomen: soft, non-tender, non-distended, bowel sounds normal; no masses or organomegaly Extremities: extremities normal, atraumatic, no cyanosis or edema Pulses: 2+ and symmetric Skin: L axillary wound w/ erythema/edema/TTP/some purulent drainage Neurologic: grossly normal, no focal deficits Last 24 Hour Vital Signs Date Time Temp Pulse Resp B/P (MAP) Pulse Ox O2 Delivery O2 Flow Rate FiO2 03/18/17 16:00 97.2 62 17 112/57 98 Nasal Cannula 3.0 03/18/17 15:30 97.8 62 18 110/60 98 Nasal Cannula 3.0 03/18/17 15:00 98.3 65 13 108/59 98 Nasal Cannula 3.0 03/18/17 15:00 98.3 03/18/17 14:44 98.3 66 13 134/59 95 Nasal Cannula 3.0 03/18/17 14:29 68 14 123/65 96 Nasal Cannula 3.0 03/18/17 14:15 67 14 145/62 96 Nasal Cannula 3.0 03/18/17 14:07 66 13 125/61 100 Nasal Cannula 3.0 03/18/17 13:55 72 13 127/56 100 Nasal Cannula 3.0 03/18/17 13:45 79 17 144/61 100 Nasal Cannula 3.0 03/18/17 13:35 82 19 128/64 100 Nasal Cannula 3.0 03/18/17 13:30 89 16 117/64 100 Simple Mask 6.0 03/18/17 13:26 97.3 91 17 134/66 100 Simple Mask 6.0 03/18/17 13:20 66 20 99 03/18/17 10:42 98.2 78 18 123/80 98 Room Air 03/18/17 08:57 98.2 78 18 123/83 98 Room Air 03/18/17 08:49 98.2 83 18 123/83 98 Room Air Intake and Output 03/18/17 03/19/17 19:00 07:00 Intake Total 700 ml Output Total 15 ml Balance 685 ml Intake IV Total 700 ml Output Estimated Blood Loss 15 ml # Voids 1 Laboratory Tests Test 03/18/17 10:43 White Blood Count 10.6 K/UL (4.8-10.8) Red Blood Count 5.01 M/UL (4.70-6.10) Hemoglobin 15.8 G/DL (14.2-18.0) Hematocrit 46.9 % (42.0-52.0) Mean Corpuscular Volume 94 FL (80-99) Mean Corpuscular Hemoglobin 31.6 PG (27.0-31.0) H Mean Corpuscular Hemoglobin Concent 33.7 G/DL (32.0-36.0) Red Cell Distribution Width 11.5 % (11.6-14.8) L Platelet Count 318 K/UL (150-450) Mean Platelet Volume 6.2 FL (6.5-10.1) L Neutrophils (%) (Auto) 66.9 % (45.0-75.0) Lymphocytes (%) (Auto) 25.4 % (20.0-45.0) Monocytes (%) (Auto) 5.1 % (1.0-10.0) Eosinophils (%) (Auto) 1.6 % (0.0-3.0) Basophils (%) (Auto) 1.0 % (0.0-2.0) Prothrombin Time 10.2 SEC (9.30-11.50) Prothromb Time International Ratio 1.0 (0.9-1.1) Sodium Level 142 MMOL/L (136-145) Potassium Level 4.4 MMOL/L (3.5-5.1) Chloride Level 107 MMOL/L (98-107) Carbon Dioxide Level 24 MMOL/L (21-32) Anion Gap 11 mmol/L (5-15) Blood Urea Nitrogen 11 mg/dL (7-18) Creatinine 0.9 MG/DL (0.55-1.30) Estimat Glomerular Filtration Rate > 60 mL/min (>60) Glucose Level 91 MG/DL (74-106) Calcium Level 9.1 MG/DL (8.5-10.1) Total Bilirubin 0.6 MG/DL (0.2-1.0) Aspartate Amino Transf (AST/SGOT) 19 U/L (15-37) Alanine Aminotransferase (ALT/SGPT) 30 U/L (12-78) Alkaline Phosphatase 66 U/L (46-116) Total Protein 7.6 G/DL (6.4-8.2) Albumin 3.8 G/DL (3.4-5.0) Globulin 3.8 g/dL Albumin/Globulin Ratio 1.0 (1.0-2.7) Height (Feet): 5 Height (Inches): 10.00 Weight (Pounds): 192 Medications Current Medications Medications (Trade) Dose Ordered Sig/Rosangela Route PRN Reason Start Time Stop Time Status Last Admin Dose Admin Acetaminophen (Tylenol) 650 mg Q4H PRN ORAL Mild Pain (Pain Scale 1-3) 03/18/17 10:15 04/17/17 10:14 Acetaminophen (Tylenol) 650 mg Q4H PRN ORAL FEVER 03/18/17 12:30 04/17/17 12:29 Acetaminophen/ Hydrocodone Bitart ([place] 10/325) 1 ea Q4H PRN ORAL Severe Pain (Pain Scale 7-10) 03/18/17 12:30 03/25/17 12:29 Acetaminophen/ Hydrocodone Bitart ([place] 5/325) 1 tab Q4H PRN ORAL Moderate Pain (Pain Scale 4-6) 03/18/17 12:30 03/25/17 12:29 Al Hydroxide/Mg Hydroxide (Mylanta II) 30 ml Q6H PRN ORAL dyspepsia 03/18/17 11:00 04/17/17 10:14 Cefazolin Sodium 1 gm/Dextrose 55 ml @ 110 mls/hr EVERY 8 HOURS IV 03/18/17 22:00 03/19/17 06:29 Dextrose (Dextrose 50%) STAT PRN IV Hypoglycemia 03/18/17 11:00 04/17/17 10:14 Dextrose/Sodium Chloride 1,000 ml @ 75 mls/hr [id number] IV 03/18/17 11:00 04/17/17 10:59 03/18/17 16:27 Diphenhydramine HCl (Benadryl) 12.5 mg Q6H PRN IVP Itching/Pruritis 03/18/17 12:30 04/17/17 12:29 Docusate Sodium (Colace) 100 mg EVERY 12 HOURS ORAL 03/18/17 21:00 04/17/17 20:59 Heparin Sodium (Porcine) (Heparin 5000 units/ml) 5,000 units EVERY 12 HOURS SUBQ 03/18/17 21:00 04/17/17 20:59 Hydromorphone HCl (Dilaudid) 0.5 mg Q3H PRN IVP Pain Score 1-3 03/18/17 12:30 03/25/17 12:29 Hydromorphone HCl (Dilaudid) 1 mg Q3H PRN IVP pain score 4-6 03/18/17 12:30 03/25/17 12:29 Hydromorphone HCl (Dilaudid) 2 mg Q3H PRN IVP pain score 7-10 03/18/17 12:30 03/25/17 12:29 Magnesium Hydroxide (Mom) 30 ml HSPRN PRN ORAL Constipation 03/18/17 21:00 04/17/17 20:59 Ondansetron HCl (Zofran) 4 mg Q6H PRN IVP Nausea & Vomiting 03/18/17 12:30 04/17/17 12:29 Zolpidem Tartrate (Ambien) 5 mg DAILYPRN PRN ORAL Insomnia 03/18/17 12:30 03/25/17 12:29 Assessment/Plan Problem List: (1) Wound dehiscence ICD Codes: T81.30XA - Disruption of wound, unspecified, initial encounter SNOMED: 730225236 (2) L axillary wound infection (3) Hidradenitis suppurativa ICD Codes: L73.2 - Hidradenitis suppurativa SNOMED: 92610702 (4) Tobacco abuse ICD Codes: Z72.0 - Tobacco use SNOMED: 90352339, 483693703 Status: stable Assessment/Plan Admit inpt Plastic surgery consulted--plan for OR today NPO, IVFs Empiric IV antibiotics F/u cultures Pain control, bowel regimen Supportive care D/w pt, RN, surgery regarding mgmt and dispo Wijegunaratne,Kanishka M.D. Mar 18, 2017 16:48
--- NOTE | 2017-03-18 19:30 | Operative Note - Dictated ---
DATE OF OPERATION: 03/18/2017 PREOPERATIVE DIAGNOSIS: Left axillary wound flap dehiscence. POSTOPERATIVE DIAGNOSIS: Left axillary wound flap dehiscence. PROCEDURES: 1. Debridement of left axillary wound. 2. Readvancement of previously raised thoracodorsal artery flap. 3. Elevation of an anterior chest wall flap for closure of left axillary wound. 4. Elevation of a medial arm flap for closure of the left axillary wound. SURGEON: Angelo Chavarria M.D. WE[employer] LOSS CENTRE MANAGER: Miguel Esparza M.D. ANESTHESIA: General. COMPLICATIONS: None. DRAINS: None. DISPOSITION: Stable to the recovery room. INDICATIONS FOR SURGERY: This is a 27-year-old male, who is approximately 2 weeks postoperative from axillary debridement and reconstruction with a thoracodorsal artery flap as well as chest wall flaps, who have been doing well until approximately several days ago when he noted his wound was starting to have some dehiscence and he presented to the emergency room with drainage and pain from the left axillary wound flap dehiscence. Upon evaluation by me, I felt that he was an appropriate candidate for debridement and flap readvancement and closure. He understood the risks and benefits of surgery and agreed to proceed. DETAILS OF THE OPERATION: The patient was brought to the operating room and laid in the supine position on the operating table. The left axilla was prepped and draped in a sterile and usual fashion. We began first by debriding the nonviable tissues at the very tip of the thoracodorsal artery flap that had been previously elevated down to healthy punctate bleeding. With this done, the defect that resulted was 8 x 6 cm and could not be closed primarily by reapproximating the tissues. As such, the thoracodorsal artery flap that had been previously elevated based off of the perforators of the thoracodorsal artery was readvanced into the central aspect of the wound to allow for closure. However, even with this, it was not sufficient. As such, flaps had to be elevated both on the superior aspect, which involved reelevation of the medial brachial arm flap by elevating it based off of perforators of the brachial artery and just above the deltoid fascia and in a similar fashion, the previously raised anterior chest wall flap based off of perforators of the thoracoacromial artery had to be elevated above the axillary fascia to allow for advancement. In the conglomeration of the chest wall flap, the medial arm flap, as well as the thoracodorsal artery flap together, we were able to definitively close the wound without any tension. Prior to this, however, the wound was copiously irrigated with pulse lavage. Hemostasis was achieved and the closure was pursued using #0 and 2-0 Vicryl sutures by reapproximating all 3 flaps together in the central aspect of the wound and the skin was closed without any tension using multiple interrupted 2-0 Prolene sutures. The patient tolerated the procedure well and there were no complications. Angelo Chavarria M.D. DR: Vaibhav JOB#: [id number] CC:
[2017-03-18] MEDS ORDERED: KEFLEX500 MG ORAL (20:14)
[2017-03-18] MEDS ORDERED: Docusate 100mg cap ORAL SCH (21:00)
[2017-03-18] MEDS: Docusate 100mg cap ORAL SCH (21:48)
[2017-03-18] MEDS: ceFAZolin sod 1 GM in D5W 55 ML IV SCH (21:49)
[2017-03-18] MEDS: Heparin 5000 units/ml inj SUBQ SCH (21:50)
[2017-03-19] VITALS: BP 120/70
[2017-03-19 04:00] VITALS: BP 119/61
[2017-03-19] MEDS: ceFAZolin sod 1 GM in D5W 55 ML IV SCH (06:11)
[2017-03-19 08:00] VITALS: BP 111/67
[2017-03-19] MEDS: Docusate 100mg cap ORAL SCH (08:32)
[2017-03-19] MEDS: Heparin 5000 units/ml inj SUBQ SCH (08:36)
[2017-03-19 08:48] VITALS: BP 111/67
--- NOTE | 2017-03-19 08:48 | 48 Hour Post Anesthesia Eval ---
Post Anesthesia Evaluation Procedure: Revision and closure of L axillary wound Date of Evaluation: Mar 19, 2017 Time of Evaluation: 10:30 Blood Pressure Systolic: 111 0: 67 Pulse Rate: 68 Respiratory Rate: 20 Temperature (Fahrenheit): 98.6 O2 Sat by Pulse Oximetry: 99 Airway: patent Nausea: No Vomiting: No Pain Intensity: 3 Hydration Status: adequate Cardiopulmonary Status: Stable Mental Status/LOC: patient returned to baseline Follow-up Care/Observations: As per surgery Post-Anesthesia Complications: No anesthetic complication Follow-up care needed: N/A CANDICE FORBES M.D. Mar 19, 2017 08:48
--- NOTE | 2017-03-19 15:19 | Discharge Summary ---
Discharge Summary Hospital Course Date of Admission Mar 18, 2017 at 10:25 Date of Discharge Mar 19, 2017 at 10:45 Admitting Diagnosis WOUND DEHISCENCE Reason for Hospitalization: wound dehiscence HPI 26yo male with pmh of hidradenitis suppurative s/p recent radical excission of L axillary tissue w/ flap elevation on 02/22/17 and then L axillary wound closure on 02/25/17 who presents with L axilla wound dehiscence. Pt noted reopening of sure of L axillary wound. C/o worsening pain, f/c and some purulent drainage. Pt denies f/c, n/v/d/c, abd pain, chest pain, SOB. Consultations Plastic surgery Procedures 03/18/17 1. Debridement of left axillary wound. 2. Readvancement of previously raised thoracodorsal artery flap. 3. Elevation of an anterior chest wall flap for closure of left axillary wound. 4. Elevation of a medial arm flap for closure of the left axillary wound. Hospital Course Pt was admitted and seen by plastic surgery. He underwent debridement of left axillary wound, readvancement of previously raised thoracodorsal artery flap, rlevation of an anterior chest wall flap for closure of left axillary wound, elevation of a medial arm flap for closure of the left axillary on 03/18/17. Pt tolerated procedure well. He received IV antibiotics,. Once pain controlled and wounds stable, he was discharged home with oral antibiotics and pain medications. Discharge Medications Continued Medications: Cephalexin* (Keflex*) 500 Mg Capsule 500 MG ORAL Q6H for 7 Days, #28 CAP 0 Refills (This prescription has been renewed) Hydrocodone Bit/Acetaminophen 5-325* ([place] 5-325*) 1 Each Tablet 1 TAB ORAL Q6H PRN, #30 TAB 0 Refills Discharge Condition Upon Discharge: stable Discharge Disposition Patient was discharged to Home (01) Discharge Diagnoses: (1) Wound dehiscence (2) L axillary wound infection (3) Hidradenitis suppurativa Sharon Lenz M.D. Mar 19, 2017 15:19
== END 2017-03-19 10:45 | disposition home or self-care (01) | DRG 903 ==
LOC: EMR 09:00 → EDBEDREQ 10:24 → 4E 10:25 → EMR 10:45 → 3E 13:31
PROC: 0JXF0ZZ Transfer Left Upper Arm Subcutaneous Tissue and Fascia, Open Approach (ICD-10-PCS; principal; 2017-03-18 12:00)
PROC: 0JX60ZZ Transfer Chest Subcutaneous Tissue and Fascia, Open Approach (ICD-10-PCS; principal; 2017-03-18 12:00)
PROC: 0JBF0ZZ Excision of Left Upper Arm Subcutaneous Tissue and Fascia, Open Approach (ICD-10-PCS; principal; 2017-03-18 12:00)
DX: T81.31XA Disruption of external operation (surgical) wound, not elsewhere classified, initial encounter (principal); F17.200 Nicotine dependence, unspecified, uncomplicated; L73.2 Hidradenitis suppurativa; Y83.2 Surgical operation with anastomosis, bypass or graft as the cause of abnormal reaction of the patient, or of later complication, without mention of misadventure at the time of the procedure
CPT/HCPCS: 36415; 80053; 85025; 85610; 94003; 94150; 99285; J2250; J2405